=== PATIENT | male | born 1955 | race African-American/Black ===

== ENCOUNTER 2019-06-19 06:55 | Inpatient (IN) | payer BC ==
[2019-06-19] VITALS (23 sets, daily range): BP systolic 86–133; BP diastolic 44–102; PULSE 116–150; RESP 16–31; Ht 170.2 cm; Wt 79.0 kg
[~2019-06-19] VITALS: Ht 170.2 cm; Wt 79.0 kg
[~2019-06-19 06:55] MED LIST: ACET325T33 PO; AMLO-147 PO; BUSP15TA3 PO; CARAS PO; DOCU-103 PO; INSU100C SQ; INSU100I33 SC; LABE100T7 PO; LACT1CAP28 PO; LISI-313 PO; LISI10TA2 PO; LORA1TAB PO; METO-335 PO; PANT40TA4 PO; RIVA15TA PO; THIA100T56 PO
[2019-06-19] MEDS ORDERED: SOD CHLORIDE 0.9% 2,450 ML IV ONE (07:00)
[2019-06-19] MEDS ORDERED: SOD CHLORIDE 0.9% 0 ML IV ONE (07:20)
[2019-06-19] MEDS ORDERED: PANTOPRAZOLE IV 80 MG in SOD CHLORIDE 0.9% 100 ML IVPB STA (07:25)
[2019-06-19] MEDS ORDERED: CEFEPIME 2GM/50 ML (PMX) 50 ML IVPB STA (07:25)
[2019-06-19] MEDS ORDERED: VANCOMYCIN 1 GM (PMX) 250 ML IVPB ONE (07:30)
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
[2019-06-19] MEDS ORDERED: INSULIN LISPRO 100 UNIT/ML VIAL SC ONE (08:30)
[2019-06-19] MEDS ORDERED: ACETAMINOPHEN 650 MG SUPP PR ONE (08:30)
[2019-06-19] MEDS ORDERED: ACCU-CHEK XX ONE (09:00)
--- NOTE | 2019-06-19 12:04 | EN ---
Date/Time of Note Date/Time of Note DATE: 06/19/19 TIME: 12:03 Event Note Medicine Medicine Event Note Patient has severe anemia, hemoglobin 3.7. Patient is nonverbal unable to provide consent at this time. There are no family members or other documentation available to obtain consent. It is a medical necessity at this time to get the blood products ordered including PRBC transfusion and FFP, and therefore we will go ahead and order this and proceed with transfusions. SHONNA RING Jun 19, 2019 12:03
[2019-06-19] MEDS ORDERED: ONDANSETRON 4 MG INJ IV PRN (12:30)
[2019-06-19] MEDS ORDERED: DEXTROSE 50% 50 ML SYRINGE IV PRN ×2 (12:30)
[2019-06-19] MEDS ORDERED: NITROGLYCERIN (SL) 0.4 MG TAB SL PRN (12:30)
[2019-06-19] MEDS ORDERED: LIDOCAINE 1% (MPF) 5 ML VIAL SC ONE (12:30)
[2019-06-19] MEDS ORDERED: VANCOMYCIN IV PER PHARMACY XX SCH (12:30)
[2019-06-19] MEDS ORDERED: NACL 0.9% 3 ML SYG IV SCH (12:30)
[2019-06-19] MEDS ORDERED: ACETAMINOPHEN 325 MG TAB PO PRN (12:30)
[2019-06-19] MEDS ORDERED: ALBUTEROL/IPRATROPIUM (NEB) 3 ML AMP HHN PRN (12:30)
[2019-06-19] MEDS ORDERED: hydrALAzine 20 MG INJ IV PRN (12:30)
[2019-06-19] MEDS ORDERED: MAGNESIUM HYDROXIDE 30ML CUP PO PRN (12:30)
[2019-06-19] MEDS ORDERED: morphine 2 MG INJ IV PRN (12:30)
[2019-06-19] MEDS ORDERED: HYDROCODONE/APAP (5/325) TAB PO PRN (12:30)
[2019-06-19] MEDS ORDERED: SUCRALFATE (100 MG/ML) 10ML CUP PO SCH (12:30)
[2019-06-19] MEDS: SOD CHLORIDE 0.9% 1,000 ML IV SCH ×2 (13:25→22:44)
[2019-06-19] MEDS: ACCU-CHEK XX SCH ×12 (13:30→23:33)
[2019-06-19] MEDS: INSULIN HUMAN REGULAR 100 UNIT in SOD CHLORIDE 0.9% 99 ML IV SCH ×2 (13:31→19:31)
--- NOTE | 2019-06-19 13:55 | CONS ---
Assessment/Plan Assessment/Plan Hospital Course (Demo Recall) Summary Assessment and Plan: Assessment: Severe anemia with reported melena Coagulopathy Lactacidosis Leukocytosis Dehydration Hyperglycemia- with likely underlying DM Left sided weakness -Hx of tracheostomy and PEG- based on exam CT brain - Densely calcified right M1 middle cerebral artery which may be chronically thrombosed Plan: Transfuse Packed RBCs- FFP today Pt is not able to consent for himself nor is there known family/conservator to consent- therefore this is deemed as a medical necessity to proceed with EGD given melena and severe anemia, once stabilized. We will plan for EGD likely tomorrow Agree with PPI gtt SW consult pending Monitor H/H, transfuse for Hgb less than 7.5- recheck INR in am Patient seen in collaboration with Dr. Cooper CC: JAZZ COOPER MD ; Consultation Date/Type/Reason Admit Date/Time Jun 19, 2019 at 09:22 Date of Consultation: Jun 19, 2019 Type of Consult GI Reason for Consultation Severe anemia Date/Time of Note DATE: 06/19/19 TIME: 13:51 Hx of Present Illness This is a 64-year-old male with altered mental status therefore HPI is limited information obtained from medical history with what appears to be a history of left-sided weakness, previous tracheostomy and PEG placement, hyperglycemia with likely underlying diabetes mellitus who presented to the hospital from [facility] for increased altered mental status. With work-up in the ED patient found to have profound normocytic anemia with a hemoglobin of 3.7, leukocytosis with a WBC of 17.9, coagulopathy INR 2.03, elevated glucose 521, elevated lactic acid 5.0, potassium 5.2. Additionally imaging was obtained CXR shows no evidence of active cardiopulmonary disease. CT of the brain shows no acute intracranial pathology densely calcified right OR middle cerebral artery which may be chronically thrombosed. CT abdomen pelvis without contrast reveals tiny hernia, no evidence of colitis or appendicitis. At time evaluation patient is in ICU currently receiving packed RBCs patient is able to respond to name not able to answer other questions during examination patient appeared to be in significant pain while palpating epigastric area there is also reported melena with arrival. Subjective hx not possible: pt critical Past Medical History Home Meds Reported Medications Sucralfate* (Carafate*) 1 Gm/10 Ml Susp, 1 GM PO NEEDED, EA 06/19/19 Docusate Sodium (Docusil) 100 Mg Capsule, 100 MG PO BID, #60 CAP 06/19/19 Lisinopril* (Lisinopril*) 10 Mg Tablet, 10 MG PO BID, #30 TAB 06/19/19 Rivaroxaban* (Xarelto*) 15 Mg Tablet, 15 MG PO DAILY, TAB 06/19/19 Insulin Lispro (Humalog) 100 Unit/1 Ml Cartridge, SQ, EA 06/19/19 Lorazepam* (Lorazepam*) 1 Mg Tablet, 1 MG PO TID PRN for ANXIETY, #30 TAB 06/19/19 Amlodipine Besylate* (Amlodipine Besylate*) 10 Mg Tablet, 10 MG PO DAILY, #30 TAB 06/19/19 Insulin Glargine,Hum.rec.anlog (Basaglar Kwikpen U-100) 100 Unit/1 Ml Insuln.pen, SC, EA 06/19/19 Buspirone Hcl* (Buspirone Hcl*) 15 Mg Tablet, 15 MG PO BID, TAB 06/19/19 Labetalol Hcl* (Labetalol Hcl*) 100 Mg Tablet, 100 MG PO TID, TAB 06/19/19 Medications Current Medications IV Flush (NS 3 ml) 3 ml PER PROTOCOL IV ; Start 06/19/19 at 12:30 Ondansetron HCl (Zofran Inj) 4 mg Q6H PRN IV NAUSEA/VOMITING; Start 06/19/19 at 12:30 Acetaminophen (Tylenol Tab) 650 mg Q6H PRN PO .PAIN 1-3 OR TEMP; Start 06/19/19 at 12:30 Acetaminophen/ Hydrocodone Bitart (Rives (5/325)) 1 tab Q6H PRN PO .MOD PAIN 4- 6; Start 06/19/19 at 12:30 Morphine Sulfate (morphine) 2 mg Q4H PRN IV .SEVERE PAIN 7-10; Start 06/19/19 at 12:30 Docusate Sodium (Colace) 100 mg Q12H PRN PO .CONSTIPATION; Start 06/19/19 at 12:30 Magnesium Hydroxide (Milk Of Mag) 30 ml DAILY PRN PO .CONSTIPATION; Start 06/19/19 at 12:30 Lorazepam (Ativan) 0.5 mg Q6H PRN IV ANXIETY; Start 06/19/19 at 12:30 Sodium Chloride 1,000 ml @ 100 mls/hr Q10H IV Last administered on 06/19/19at 13:25; Admin Dose 100 MLS/HR; Start 06/19/19 at 12:01 Albuterol/ Ipratropium (Duoneb) 3 ml Q4H RESP THERAPY PRN HHN SHORTNESS OF BREATH; Start 06/19/19 at 12:30 Vancomycin HCl (Vanco Iv Per Pharmacy) VANCOMYCIN PER PHARMACY NOTE XX ; Start 06/19/19 at 12:30; Status UNV Hydralazine HCl (Apresoline) 10 mg Q6H PRN IV ELEVATED BLOOD PRESSURE; Start 06/19/19 at 12:30 Nitroglycerin (Nitroglycerin (Sl Tab) 0.4 Mg) 1 tab Q5M PRN SL ANGINA; Start 06/19/19 at 12:30 Cefepime HCl 50 ml @ 100 mls/hr Q8 IVPB ; Start 06/19/19 at 14:00 Diagnostic Test (Pha) (Accu-Chek) 1 ea Q1H XX Last administered on 06/19/19at 13:49; Admin Dose 1 EA; Start 06/19/19 at 12:30 Insulin Human Regular 100 unit/ Sodium Chloride 100 ml @ 0.2 mls/hr PER PROTOCOL IV Last administered on 06/19/19at 13:31; Admin Dose 6 MLS/HR; Start 06/19/19 at 13:30 Miscellaneous Information (* Miscellaneous Pharmacy Order) Treatment of Hypoglycemia: 1.BG 51... Per protocol XX ; Start 06/19/19 at 12:30 Dextrose (D50w Syringe) 25 ml Q15M PRN IV .DECREASED GLUCOSE; Start 06/19/19 at 12:30 Dextrose (D50w Syringe) 50 ml Q15M PRN IV .DECREASED GLUCOSE; Start 06/19/19 at 12:30 Sucralfate (Carafate Susp) 1 gm Q12 PO ; Start 06/19/19 at 12:30 Pantoprazole 80 mg/Sodium Chloride 100 ml @ 10 mls/hr Q10H IV ; Start 06/19/19 at 12:30 Allergies: Coded Allergies: Unknown: Unable to obtain (Unverified , 06/19/19) aloc Social History Smoking Status: Unknown if ever smoked Exam/Review of Systems Exam Vitals Vital Signs Date Temp Pulse Resp B/P (MAP) Pulse Ox O2 O2 Flow FiO2 Time Delivery Rate 06/19/19 136 12:00 06/19/19 Nasal 2.0 12:00 Cannula 06/19/19 97.0 16 109/53 100 10:24 (71) Exam PHYSICAL EXAMINATION: GENERAL: Pale, lethargic, confused- not able to make needs known SKIN: No lesions HEAD: Normocephalic, atraumatic, no tenderness. EYES: Pupils equal reactive to light and accommodation, no discharge. EARS/NOSE AND THROAT: Ears normal, nose normal, oropharynx normal, oral membranes well hydrated without lesions. NECK: Supple, no masses. CHEST: Inspection within normal limits. CARDIOVASCULAR: Heart: Regular rate and rhythm RESPIRATORY: Lungs clear to auscultation GASTROINTESTINAL AND LIVER: Abdomen: Soft, upper abdominal pain with palpation, non-distended, no hernias, no masses, no guarding, no rebound tenderness, normoactive bowel sounds. Rectal: Deferred. EXTREMITIES: No cyanosis, clubbing or edema. Results Result Diagram: 06/19/19 0656 06/19/19 0656 Results 24hrs Laboratory Tests Test 06/19/19 06:56 06/19/19 07:38 06/19/19 08:50 06/19/19 09:24 White Blood Count 17.9 H Red Blood Count 1.27 L Hemoglobin 3.7 *L Hematocrit 12.5 L Mean Corpuscular 98.4 Volume Mean Corpuscular 29.1 Hemoglobin Mean Corpuscular 29.6 L Hemoglobin Concent Red Cell 16.6 H Distribution Width Platelet Count 177 Mean Platelet 12.1 H Volume Immature 4.300 H Granulocytes % Neutrophils % 73.3 Lymphocytes % 12.9 L Monocytes % 9.3 Eosinophils % 0.1 Basophils % 0.1 Nucleated Red 4.4 H Blood Cells % Immature 0.770 H Granulocytes # Neutrophils # 13.1 H Lymphocytes # 2.3 Monocytes # 1.7 H Eosinophils # 0.0 Basophils # 0.0 Nucleated Red 0.8 H Blood Cells # Prothrombin Time 23.0 H Prothrombin Time 1.8 Ratio INR International 2.03 Normalized Ratio Activated 21.[address] Time Blood Gas Specimen Blood arterial Source Arterial Blood 06/19/2019 7:12:21 Date Drawn AM Arterial Blood pH 7.468 H (Temp corrected) Arterial Blood 28.5 L pCO2 (Temp correct) Arterial Blood pO2 150.3 H (Temp corrected) Arterial Blood 20.2 L HCO3 Arterial Blood -3.6 L Base Excess Arterial Blood 98.7 H Oxygen Saturation Vasu Test N/A Arterial Blood Gas LB Puncture Site Arterial 0.5 Blood Carboxyhemog lobin Arterial Blood 0.7 Methemoglobin Blood Gas A-a O2 30.1 H Differential Oxyhemoglobin 97.5 Percent Blood Gas 37.0 Temperature Blood Gas Modality NASAL CANNULA FiO2 30.0 Blood Gas Notified Joe Whom Blood Gas Notified 06/19/2019 7:17:06 Time AM Sodium Level 137 Potassium Level 5.2 H Chloride Level 106 Carbon Dioxide 19 L Level Anion Gap 12 Blood Urea 72 H Nitrogen Creatinine 1.19 Est Glomerular > 60 Filtrat Rate mL/min Glucose Level 521 *H Hemoglobin A1c Lactic Acid Level 5.0 *H 5.3 *H Calcium Level 8.7 Total Bilirubin 0.3 Direct Bilirubin 0.00 Indirect Bilirubin 0.3 Aspartate Amino 14 L Transf (AST/SGOT) Alanine 18 Aminotransferase ( ALT/SGPT) Alkaline 57 Phosphatase Troponin I < 0.012 Total Protein 4.8 L Albumin 2.8 L Globulin 2.00 Albumin/Globulin 1.40 Ratio Salicylates Level < 1.0 L Acetaminophen < 10.0 L Level Ethyl Alcohol < 10.0 H Level POC Venous Lactate 4.4 *H Bedside Glucose 537 *H Test 06/19/19 10:00 06/19/19 11:07 06/19/19 11:21 06/19/19 13:26 Urine Color STRAW Urine Clarity CLEAR Urine pH 5.0 Urine Specific 1.014 [place] Urine Ketones TRACE A Urine Nitrite NEGATIVE Urine Bilirubin NEGATIVE Urine Urobilinogen NEGATIVE Urine Leukocyte NEGATIVE Esterase Urine Hemoglobin NEGATIVE Urine Glucose 3+ H Urine Total NEGATIVE Protein Urine Opiates Negative Screen Urine Barbiturates Negative Urine Amphetamines Negative Screen Urine Negative Benzodiazepines Screen Urine Cocaine Negative Screen Urine Cannabinoids Negative Lactic Acid Level 6.0 *H Bedside Glucose 504 *H 487 *H Medications Medication Current Medications IV Flush (NS 3 ml) 3 ml PER PROTOCOL IV ; Start 06/19/19 at 12:30 Ondansetron HCl (Zofran Inj) 4 mg Q6H PRN IV NAUSEA/VOMITING; Start 06/19/19 at 12:30 Acetaminophen (Tylenol Tab) 650 mg Q6H PRN PO .PAIN 1-3 OR TEMP; Start 06/19/19 at 12:30 Acetaminophen/ Hydrocodone Bitart (Rives (5/325)) 1 tab Q6H PRN PO .MOD PAIN 4- 6; Start 06/19/19 at 12:30 Morphine Sulfate (morphine) 2 mg Q4H PRN IV .SEVERE PAIN 7-10; Start 06/19/19 at 12:30 Docusate Sodium (Colace) 100 mg Q12H PRN PO .CONSTIPATION; Start 06/19/19 at 12:30 Magnesium Hydroxide (Milk Of Mag) 30 ml DAILY PRN PO .CONSTIPATION; Start 06/19/19 at 12:30 Lorazepam (Ativan) 0.5 mg Q6H PRN IV ANXIETY; Start 06/19/19 at 12:30 Sodium Chloride 1,000 ml @ 100 mls/hr Q10H IV Last administered on 06/19/19at 13:25; Admin Dose 100 MLS/HR; Start 06/19/19 at 12:01 Albuterol/ Ipratropium (Duoneb) 3 ml Q4H RESP THERAPY PRN HHN SHORTNESS OF BREATH; Start 06/19/19 at 12:30 Vancomycin HCl (Vanco Iv Per Pharmacy) VANCOMYCIN PER PHARMACY NOTE XX ; Start 06/19/19 at 12:30; Status UNV Hydralazine HCl (Apresoline) 10 mg Q6H PRN IV ELEVATED BLOOD PRESSURE; Start 06/19/19 at 12:30 Nitroglycerin (Nitroglycerin (Sl Tab) 0.4 Mg) 1 tab Q5M PRN SL ANGINA; Start 06/19/19 at 12:30 Cefepime HCl 50 ml @ 100 mls/hr Q8 IVPB ; Start 06/19/19 at 14:00 Diagnostic Test (Pha) (Accu-Chek) 1 ea Q1H XX Last administered on 06/19/19at 13:49; Admin Dose 1 EA; Start 06/19/19 at 12:30 Insulin Human Regular 100 unit/ Sodium Chloride 100 ml @ 0.2 mls/hr PER PROTOCOL IV Last administered on 06/19/19at 13:31; Admin Dose 6 MLS/HR; Start 06/19/19 at 13:30 Miscellaneous Information (* Miscellaneous Pharmacy Order) Treatment of Hypoglycemia: 1.BG 51... Per protocol XX ; Start 06/19/19 at 12:30 Dextrose (D50w Syringe) 25 ml Q15M PRN IV .DECREASED GLUCOSE; Start 06/19/19 at 12:30 Dextrose (D50w Syringe) 50 ml Q15M PRN IV .DECREASED GLUCOSE; Start 06/19/19 at 12:30 Sucralfate (Carafate Susp) 1 gm Q12 PO ; Start 06/19/19 at 12:30 Pantoprazole 80 mg/Sodium Chloride 100 ml @ 10 mls/hr Q10H IV ; Start 06/19/19 at 12:30 DAIANA HERNANDEZ Jun 19, 2019 13:55
[2019-06-19] MEDS ORDERED: VANCOMYCIN 500 MG (PMX) 100 ML IVPB SCH (15:00)
[2019-06-19] MEDS ORDERED: SUCRALFATE (100 MG/ML) 10ML CUP PO PRN (15:00)
--- NOTE | 2019-06-19 15:26 | HP ---
DATE OF ADMISSION: 06/19/2019 CHIEF COMPLAINT: This is a 64-year-old, altered level of consciousness, elevated sugars. HISTORY OF PRESENT ILLNESS: A 64-year-old gentleman with past medical history based on records of left-sided weakness, tracheostomy placement, PEG placement, likely diabetes with hyperglycemia, who was brought in from [facility] for altered mental status and altered level of consciousness. Most of the information is obtained from the ER documentation as the patient is unable to provide full HPI at this time. When the patient arrived in the ER was told that the patient had been having altered mental status at the outside facility at least for 1 hour. When he came in, he was found with elevated blood sugars in the 500 range and his blood pressure was low, systolic blood pressure in the 80s. He was also found in the ER with temperature 100.2 and elevated white blood cell count of 17.9. His INR was also found to be high at 2.03 and his lactic acid was elevated in the 5 to 6 range. The patient more importantly was also found with hemoglobin 3.7 and was ordered for 4 units of PRBC in the ER, which the patient is presently getting. He also received broad spectrum antibiotics and IV fluids and Protonix IV. There was also noticed in the ER, some dark stools. Again, full review of systems cannot be obtained as the patient is unable to provide this at this time. The patient also had a CT of the brain that did not show any acute abnormalities. patient also had CT abdomen and pelvis without contrast that showed tiny hernias, but no evidence of any colitis or appendicitis. Also, chest x-ray was performed that showed no evidence of any active cardiopulmonary disease. PAST MEDICAL HISTORY: As stated above. ALLERGIES: Unknown. MEDICATIONS AT HOME (FACILITY): Based on records, he is on: 1. Xarelto 50 mg daily. 2. Amlodipine 10 mg daily. 3. Labetalol 100 mg t.i.d. 4. Lisinopril 10 mg b.i.d. 5. Buspirone 50 mg b.i.d. 6. Lorazepam 1 mg p.o. t.i.d. p.r.n. 7. Colace 100 mg b.i.d. 8. Carafate 1 gram p.o. as needed. 9. Besaglar insulin, unknown dose. 10. Humalog insulin, unknown dose. SOCIAL HISTORY: Unknown. PAST SURGICAL HISTORY: Again, the patient has history of trach and PEG. Rest of the information unable to obtain. FAMILY HISTORY: Unknown. PHYSICAL EXAMINATION: VITAL SIGNS: T-max 100.2, pulse 135-142, blood pressure systolic 80 to 139 systolic over 74 to 112, diastolic, satting at 100% on 2 liters nasal cannula. GENERAL: The patient is lying in bed, answers simple yes and no questions, appears lethargic, however. HEENT: Pupils equal, round and reactive to light. Extraocular muscles intact. NECK: Supple, no thyromegaly. LUNGS: Clear to auscultation bilaterally. CARDIOVASCULAR: Tachycardic heart rate. No rubs or gallops. ABDOMEN: Soft, somewhat distended, but otherwise nontender. Normal bowel sounds. No rebound or guarding. MUSCULOSKELETAL: No lower extremity edema bilaterally. NEUROLOGIC: appears to have some left-sided weakness symptoms. LABORATORIES: WBC 17.9, hemoglobin 3.7, hematocrit 12.5, platelets of 177. Sodium 137, potassium 5.2, chloride 106, CO2 19, BUN of 72, creatinine 1.19, glucose of 521. Lactic acid 5.0. LFTs are normal. Urine drug screen is negative. Blood alcohol level is normal. Salicylate level is normal and blood acetaminophen level is normal. UA shows trace ketones, 3+ glucose, but negative nitrites, negative leukocyte esterase. Coags show an INR 2.03. We mentioned the imaging studies. ASSESSMENT AND PLAN: 64-year-old male with past medical history of left-sided weakness tracheostomy placement, PEG placement, likely diabetes with hyperglycemia who presents with severe anemia, altered mental status, hyperglycemia, lactic acidosis. 1. Severe anemia- Again, unclear source. Hgb = 3.7 on admission. The patient did have some dark stools in the ER. No signs of any upper GI bleeding. - continue PRBC transfusion has been ordered for a total of 4 units of PRBC., and we will follow up the post-transfusion CBC. - Follow up TSH, A1c, lipid panel. - Continue IV fluids, follow up stool occult test per discussion with GI team. Most likely, the patient will go for EGD, colonoscopy in the next 24 hours. - Get PT and speech therapy evaluations as well. - Continue Protonix drip. - It is a medical necessity as well to have the patient have a PICC placed as he is unable to provide consent at this time and there are no family members available to provide consent. 2. Altered mental status likely secondary to #1. - Continue to monitor for now. Head CT results noted. No acute findings. 3. Lactic acidosis with leukocytosis, unclear source. UA did not show any signs of any UTI. Chest x-ray did not show any potential source of infection. CT abdomen and pelvis did not show any further source of infection. - for now, continue to trend his lactic acid, give him aggressive IV fluid hydration - Continue broad-spectrum antibiotics for now. We will follow up final culture results. - Again, trend lactic acid. 4. Hyperglycemia. Again, sugars have been in the 500 range on admission, although the anion gap is normal. Bicarbonate is only mildly decreased. - Continue aggressive IV fluid hydration and IV insulin as well. - Follow up A1c. 5. Left-sided weakness. Again, unclear source of this patient may have had a history of an old stroke. He does have a history of tracheostomy and PEG. - Continue to monitor for now. 5. Gastrointestinal prophylaxis. PPI. 6. DVT prophylaxis. Avoid all anticoagulants- SCDs for now. Dictated By: SHONNA MARSHALL/ANGELICA Conf#: [id number] DID#: [id number] CC: YONATHAN PAULINO MD;*[facility]* MTDD
[2019-06-19] MEDS: CEFEPIME 2GM/50 ML (PMX) 50 ML IVPB SCH ×2 (15:27→22:44)
[2019-06-19] MEDS: PANTOPRAZOLE IV 80 MG in SOD CHLORIDE 0.9% 100 ML IV SCH ×2 (17:22→22:44)
--- NOTE | 2019-06-19 20:54 | RADRPT ---
Echocardiogram Report Patient Name: STANISLAV JUAREZPatient ID: [id number] : 1955 (64y 2m)Study Date: 06/19/2019 1:51:52 PM Gender: MAccession #: [id number] Tech: BrettPankaj Brown RDCS Location: 108 Ref.Physician: SHONNA RING Height(Cm): BSA: Weight(Kg): Quality: AdequateOrder Physician: SHONNA RING Account #: Procedures: Echocardiographic Report: Transthoracic echocardiogram with complete 2D, M-Mode, and doppler examination. Indications: AMS. Measurements: 2D/M Mode Doppler Measurement Value Normal Range Measurement Value Normal Range LVIDd 2D 4.1 [ 4.2 - 5.8 ] cm AV Peak Dheeraj 1.1 [ 100.0 - 170.0 ] cm/sec LVIDs 2D 2.5 [ 2.5 - 4.0 ] cm AV Peak PG 5.0 [ 2.0 - 9.0 ] mmHg LVPWd 2D 1.0 [ 0.6 - 1.0 ] cm LVOT Peak Dheeraj 0.8 [ 70.0 - 110.0 ] cm/sec IVSd 2D 1.1 [ 0.6 - 1.0 ] cm LVOT Peak PG 2.0 [ 2.0 - 6.0 ] mmHg AoR Diam 2D 2.7 [ 2.6 - 3.4 ] cm TR Peak Dheeraj 2.8 [ 100.0 - 280.0 ] cm/sec EDV 2D 72.9 [ 62.0 - 150.0 ] ml TR Peak PG 31.0 mmHg ESV 2D 22.1 [ 21.0 - 61.0 ] ml RVSP 34.0 [ 10.0 - 36.0 ] mmHg EF 2D 69.7 [ 52.0 - 72.0 ] percent RA Pressure 3.0 mmHg LA Dimen 2D 1.9 [ 3.0 - 4.0 ] cm Findings: Left Ventricle: Normal left ventricular systolic function. Normal left ventricular cavity size. Mild concentric left ventricular hypertrophy. Ejection fraction is visually estimated at 55-60 %. Abnormal Diastolic Function. Right Ventricle: Normal right ventricular size. Normal right ventricular systolic function. Left Atrium: The left atrium is normal in size. Right Atrium: The right atrium is normal in size. Mitral Valve: Normal appearance and function of the mitral valve with trace physiologic regurgitation. Aortic Valve: No significant aortic stenosis or insufficiency. Aortic cusps appear moderately calcified. Tricuspid Valve: Normal appearance of the tricuspid valve. The estimated Peak RVSP is 34 mmHg. There is trace tricuspid regurgitation. Pulmonic Valve: Pulmonic valve not well visualized. Pericardium: Normal pericardium with no significant pericardial effusion. Aorta: Normal aortic root. IVC: Normal size and normal respiratory collapse consistent with normal right atrial pressure. Conclusions: Normal left ventricular systolic function. Normal left ventricular cavity size. Mild concentric left ventricular hypertrophy. Ejection fraction is visually estimated at 55-60 %. Abnormal Diastolic Function. n. Normal right ventricular size. Normal right ventricular systolic function. No significant valvular stenosis or regurgitation seen. Normal pericardium with no significant pericardial effusion. Electronically Signed By: Fred Chavez 2019-06-19 17:12:47 PDT
[2019-06-20] VITALS (37 sets, daily range): BP systolic 101–177; BP diastolic 65–119; PULSE 101–137; RESP 15–32
[2019-06-20] MEDS: ACCU-CHEK XX SCH ×10 (00:30→09:52)
[2019-06-20] MEDS: VANCOMYCIN 1 GM 250 ML IVPB SCH ×2 (01:38→14:09)
[2019-06-20] MEDS: CEFEPIME 2GM/50 ML (PMX) 50 ML IVPB SCH ×3 (05:24→21:54)
[2019-06-20] MEDS: SOD CHLORIDE 0.9% 1,000 ML IV SCH (08:14)
[2019-06-20] MEDS: PANTOPRAZOLE IV 80 MG in SOD CHLORIDE 0.9% 100 ML IV SCH (08:14)
--- NOTE | 2019-06-20 09:54 | PN ---
Date/Time of Note Date/Time of Note DATE: 06/20/19 TIME: 09:49 Assessment/Plan VTE Prophylaxis Risk score (from Ns)>0 risk: 2 SCD applied (from Ns): Yes Pharmacological prophylaxis: NA/contraindicated Pharm contraindication: bleeding, blood coag disorder Lines/Catheters IV C[facility]ter Type (from [facility] PICC Line Central line still needed: Yes Urinary Cath still in place: Yes Reason Cath still needed: urinary retention Assessment/Plan Hospital Course S: Patient more alert today, still on insulin drip but sugars much improved. Still on Protonix drip. Seen by GI team yesterday still waiting for official speech therapy eval now. Received 4 units PRBC transfusion yesterday and 1 unit FFP yesterday. Hemoglobin improved. No fevers overnight. Still on broad- spectrum antibiotics O: VS- see below PHYSICAL EXAMINATION: GENERAL: Lying in bed, slightly more alert, less lethargic, answering simple questions HEENT: Pupils equal, round and reactive to light. Extraocular muscles intact. NECK: Supple, no thyromegaly. LUNGS: Clear to auscultation bilaterally. CARDIOVASCULAR: Tachycardic heart rate. No rubs or gallops. ABDOMEN: Soft, somewhat distended, but otherwise nontender. Normal bowel sounds. No rebound or guarding. MUSCULOSKELETAL: No lower extremity edema bilaterally. NEUROLOGIC: appears to have some left-sided weakness symptoms. ASSESSMENT AND PLAN: 64-year-old male with past medical history of left-sided weakness tracheostomy placement, PEG placement, likely diabetes with hyperglycemia who presents with severe anemia, altered mental status, hyperglycemia, lactic acidosis. 1. Severe anemia -hemoglobin now improved after 4 units PRBC given yesterday, this morning in the 8.9 range. On admission the patient did have some dark stools in the ER. No signs of any upper GI bleeding. - continue to monitor CBC. - Continue IV fluids, follow up stool occult test per discussion with GI team. Most likely, the patient will go for EGD, colonoscopy today or tomorrow -Follow-up full recognitions from PT and speech therapy evaluations as well, until then keep n.p.o. for now. -For now continue continue Protonix drip. - It is a medical necessity as well to have the patient have a PICC placed as he is unable to provide consent at this time and there are no family members available to provide consent. 2. Altered mental status likely secondary to #1. Likely secondary to sepsis and anemia, patient more alert today. - Continue to monitor for now. Head CT results noted. No acute findings. 3. Lactic acidosis with leukocytosis- unclear source. UA did not show any signs of any UTI. Chest x-ray did not show any potential source of infection. CT abdomen and pelvis did not show any further source of infection. Lactic acid from today still pending.. - for now, continue to trend his lactic acid, IV fluid hydration - Continue broad-spectrum antibiotics for now. We will follow up final culture results. 4. Hyperglycemia-sugars on admission were in the 500 range although the anion gap is normal. Bicarbonate is only mildly decreased. Sugars now improved after being on insulin drip all day yesterday and throughout the night. A1c was a send out, likely very elevated - Continue aggressive IV fluid hydration, given the improvement in the sugar s will switch to subcu insulin and Lantus - Follow up final results of A1c. 5. Left-sided weakness. Again, unclear source of this patient may have had a history of an old stroke. He does have a history of tracheostomy and PEG. On his home medicine list he was taken Xarelto, presumably for prior stroke question mitch - Continue to monitor for now. - Obviously holding all anticoagulants given the severe anemia patient presented with. 5. Gastrointestinal prophylaxis. PPI. 6. DVT prophylaxis. Avoid all anticoagulants- SCDs for now. Critical care time spent on patient care today equals 50 minutes. Result Diagram: 06/20/19 0440 06/20/19439 Results 24hrs Laboratory Tests Test 06/19/19 10:00 06/19/19 11:07 06/19/19 11:21 06/19/19 13:26 Urine Color STRAW Urine Clarity CLEAR Urine pH 5.0 Urine Specific 1.014 [place] Urine Ketones TRACE A Urine Nitrite NEGATIVE Urine Bilirubin NEGATIVE Urine Urobilinogen NEGATIVE Urine Leukocyte NEGATIVE Esterase Urine Hemoglobin NEGATIVE Urine Glucose 3+ H Urine Total Protein NEGATIVE Urine Opiates Negative Screen Urine Barbiturates Negative Urine Amphetamines Negative Screen Urine Negative Benzodiazepines Screen Urine Cocaine Negative Screen Urine Cannabinoids Negative Lactic Acid Level 6.0 *H Bedside Glucose 504 *H 487 *H Test 06/19/19 13:37 06/19/19 14:29 06/19/19 15:27 06/19/19 16:56 Lactic Acid Level 4.9 *H Free Thyroxine 1.15 Bedside Glucose 459 *H 432 *H 431 *H Test 06/19/19 17:40 06/19/19 18:36 06/19/19 18:41 06/19/19 19:32 Bedside Glucose 381 H 317 H 190 Hemoglobin 9.4 #L Hematocrit 29.0 #L Test 06/19/19 20:23 06/19/19 21:44 06/19/19 22:36 06/19/19 23:35 Bedside Glucose 149 98 120 132 Test 06/20/19 00:30 06/20/19 01:33 06/20/19 02:38 06/20/19 03:31 Bedside Glucose 139 138 129 125 Test 06/20/19 04:40 06/20/19 04:41 06/20/19 04:54 06/20/19 05:26 White Blood Count 18.2 H Red Blood Count 3.14 #L Hemoglobin 8.9 L Hematocrit 27.1 L Mean Corpuscular 86.3 Volume Mean Corpuscular 28.3 L Hemoglobin Mean Corpuscular 32.8 Hemoglobin Concent Red Cell 16.6 H Distribution Width Platelet Count 137 #L Mean Platelet 11.4 H Volume Immature 5.600 H Granulocytes % Neutrophils % 72.5 Lymphocytes % 11.6 L Monocytes % 9.8 Eosinophils % 0.1 Basophils % 0.4 Nucleated Red Blood 5.9 H Cells % Immature 1.020 H Granulocytes # Neutrophils # 13.2 H Lymphocytes # 2.1 Monocytes # 1.8 H Eosinophils # 0.0 Basophils # 0.1 Nucleated Red Blood 1.1 H Cells # Prothrombin Time 15.3 #H Prothrombin Time 1.2 Ratio INR International 1.20 Normalized Ratio Sodium Level 149 H Potassium Level 3.4 L Chloride Level 118 H Carbon Dioxide 23 Level Anion Gap 8 Blood Urea Nitrogen 34 #H Creatinine 0.85 Est Glomerular > 60 Filtrat Rate mL/min Glucose Level 118 # Hemoglobin A1c 5.8 Calcium Level 8.6 Phosphorus Level 2.1 L Magnesium Level 2.1 Triglycerides Level 124 Cholesterol Level 83 L LDL Cholesterol, 40 Calculated HDL Cholesterol 18 L Cholesterol/HDL 4.6 Ratio Thyroid Stimulating 2.550 Hormone (TSH) Bedside Glucose 125 123 Lab Scanned Report BLOOD TRANSFUSION Test 06/20/19 06:10 06/20/19 06:12 06/20/19 08:13 Bedside Glucose 115 121 118 Exam/Review of Systems Exam Vitals Vital Signs Date Temp Pulse Resp B/P (MAP) Pulse Ox O2 O2 Flow FiO2 Time Delivery Rate 06/20/19 113 08:00 06/20/19 18 145/95 97 Room Air 07:00 (112) 06/20/19 98.6 04:00 06/19/19 2.0 12:00 Intake and Output 06/19/19 06/19/19 06/20/19 1515:00 23:00 07:00 IntakeIntake Total 650 ml 1083.0 ml 1368 ml OutputOutput Total 1400 ml 1050 ml 920 ml BalanceBalance -750 ml 33.0 ml 448 ml Results Results 24hrs Laboratory Tests Test 06/19/19 10:00 06/19/19 11:07 06/19/19 11:21 06/19/19 13:26 Urine Color STRAW Urine Clarity CLEAR Urine pH 5.0 Urine Specific 1.014 [place] Urine Ketones TRACE A Urine Nitrite NEGATIVE Urine Bilirubin NEGATIVE Urine Urobilinogen NEGATIVE Urine Leukocyte NEGATIVE Esterase Urine Hemoglobin NEGATIVE Urine Glucose 3+ H Urine Total Protein NEGATIVE Urine Opiates Negative Screen Urine Barbiturates Negative Urine Amphetamines Negative Screen Urine Negative Benzodiazepines Screen Urine Cocaine Negative Screen Urine Cannabinoids Negative Lactic Acid Level 6.0 *H Bedside Glucose 504 *H 487 *H Test 06/19/19 13:37 06/19/19 14:29 06/19/19 15:27 06/19/19 16:56 Lactic Acid Level 4.9 *H Free Thyroxine 1.15 Bedside Glucose 459 *H 432 *H 431 *H Test 06/19/19 17:40 06/19/19 18:36 06/19/19 18:41 06/19/19 19:32 Bedside Glucose 381 H 317 H 190 Hemoglobin 9.4 #L Hematocrit 29.0 #L Test 06/19/19 20:23 06/19/19 21:44 06/19/19 22:36 06/19/19 23:35 Bedside Glucose 149 98 120 132 Test 06/20/19 00:30 06/20/19 01:33 06/20/19 02:38 06/20/19 03:31 Bedside Glucose 139 138 129 125 Test 06/20/19 04:40 06/20/19 04:41 06/20/19 04:54 06/20/19 05:26 White Blood Count 18.2 H Red Blood Count 3.14 #L Hemoglobin 8.9 L Hematocrit 27.1 L Mean Corpuscular 86.3 Volume Mean Corpuscular 28.3 L Hemoglobin Mean Corpuscular 32.8 Hemoglobin Concent Red Cell 16.6 H Distribution Width Platelet Count 137 #L Mean Platelet 11.4 H Volume Immature 5.600 H Granulocytes % Neutrophils % 72.5 Lymphocytes % 11.6 L Monocytes % 9.8 Eosinophils % 0.1 Basophils % 0.4 Nucleated Red Blood 5.9 H Cells % Immature 1.020 H Granulocytes # Neutrophils # 13.2 H Lymphocytes # 2.1 Monocytes # 1.8 H Eosinophils # 0.0 Basophils # 0.1 Nucleated Red Blood 1.1 H Cells # Prothrombin Time 15.3 #H Prothrombin Time 1.2 Ratio INR International 1.20 Normalized Ratio Sodium Level 149 H Potassium Level 3.4 L Chloride Level 118 H Carbon Dioxide 23 Level Anion Gap 8 Blood Urea Nitrogen 34 #H Creatinine 0.85 Est Glomerular > 60 Filtrat Rate mL/min Glucose Level 118 # Hemoglobin A1c 5.8 Calcium Level 8.6 Phosphorus Level 2.1 L Magnesium Level 2.1 Triglycerides Level 124 Cholesterol Level 83 L LDL Cholesterol, 40 Calculated HDL Cholesterol 18 L Cholesterol/HDL 4.6 Ratio Thyroid Stimulating 2.550 Hormone (TSH) Bedside Glucose 125 123 Lab Scanned Report BLOOD TRANSFUSION Test 06/20/19 06:10 06/20/19 06:12 06/20/19 08:13 Bedside Glucose 115 121 118 Medications Medication Current Medications IV Flush (NS 3 ml) 3 ml PER PROTOCOL IV ; Start 06/19/19 at 12:30 Ondansetron HCl (Zofran Inj) 4 mg Q6H PRN IV NAUSEA/VOMITING; Start 06/19/19 at 12:30 Acetaminophen (Tylenol Tab) 650 mg Q6H PRN PO .PAIN 1-3 OR TEMP; Start 06/19/19 at 12:30 Acetaminophen/ Hydrocodone Bitart ([place] (5/325)) 1 tab Q6H PRN PO .MOD PAIN 4- 6; Start 06/19/19 at 12:30 Morphine Sulfate (morphine) 2 mg Q4H PRN IV .SEVERE PAIN 7-10; Start 06/19/19 at 12:30 Docusate Sodium (Colace) 100 mg Q12H PRN PO .CONSTIPATION; Start 06/19/19 at 12:30 Magnesium Hydroxide (Milk Of Mag) 30 ml DAILY PRN PO .CONSTIPATION; Start 06/19/19 at 12:30 Lorazepam (Ativan) 0.5 mg Q6H PRN IV ANXIETY; Start 06/19/19 at 12:30 Albuterol/ Ipratropium (Duoneb) 3 ml Q4H RESP THERAPY PRN HHN SHORTNESS OF BREATH; Start 06/19/19 at 12:30 Vancomycin HCl (Vanco Iv Per Pharmacy) VANCOMYCIN PER PHARMACY NOTE XX ; Start 06/19/19 at 12:30 Hydralazine HCl (Apresoline) 10 mg Q6H PRN IV ELEVATED BLOOD PRESSURE; Start 06/19/19 at 12:30 Nitroglycerin (Nitroglycerin (Sl Tab) 0.4 Mg) 1 tab Q5M PRN SL ANGINA; Start 06/19/19 at 12:30 Cefepime HCl 50 ml @ 100 mls/hr Q8 IVPB Last administered on 06/20/19at 05:24; Admin Dose 100 MLS/HR; Start 06/19/19 at 14:00 Diagnostic Test (Pha) (Accu-Chek) 1 ea Q1H XX Last administered on 06/20/19at 08:13; Admin Dose 1 EA; Start 06/19/19 at 12:30 Insulin Human Regular 100 unit/ Sodium Chloride 100 ml @ 0.2 mls/hr PER PROTOCOL IV Last administered on 06/19/19at 19:31; Admin Dose 24 MLS/HR; Start 06/19/19 at 13:30 Miscellaneous Information (* Miscellaneous Pharmacy Order) Treatment of Hypoglycemia: 1.BG 51... Per protocol XX ; Start 06/19/19 at 12:30 Dextrose (D50w Syringe) 25 ml Q15M PRN IV .DECREASED GLUCOSE; Start 06/19/19 at 12:30 Dextrose (D50w Syringe) 50 ml Q15M PRN IV .DECREASED GLUCOSE; Start 06/19/19 at 12:30 Pantoprazole 80 mg/Sodium Chloride 100 ml @ 10 mls/hr Q10H IV Last administered on 06/20/19at 08:14; Admin Dose 10 MLS/HR; Start 06/19/19 at 12:30 Vancomycin HCl 250 ml @ 125 mls/hr Q12H IVPB Last administered on 06/20/19at 01:38; Admin Dose 125 MLS/HR; Start 06/20/19 at 02:00 Sucralfate (Carafate Susp) 1 gm Q12H PRN PO CONSTIPATION; Start 06/19/19 at 15:00 Sodium Chloride 1,000 ml @ 75 mls/hr [id number] IV ; Start 06/20/19 at 10:00; Stat us SHONNA MCCARTHY Jun 20, 2019 09:54
[2019-06-20] MEDS: SOD CHLORIDE 0.45% 1,000 ML IV SCH ×2 (10:14→23:20)
[2019-06-20] MEDS ORDERED: GLUCOSE GEL 15 GRAM TUBE PO PRN ×2 (10:30)
[2019-06-20] MEDS ORDERED: GLUCAGON 1 MG INJ IM PRN (10:30)
[2019-06-20] MEDS ORDERED: DEXTROSE 50% 50 ML SYRINGE IV PRN ×2 (10:30)
[2019-06-20] MEDS ORDERED: GLUCOSE GEL 15 GRAM TUBE BUCCAL PRN (10:30)
[2019-06-20] MEDS: INSULIN ASPART [NOVOLOG] 3 ML PEN SC SCH ×3 (12:40→20:22)
--- NOTE | 2019-06-20 15:37 | PREAC ---
Date/Time of Note Date/Time of Note DATE: 06/20/19 TIME: 15:36 Anesthesia Eval and Record Evaluation Time Pre-Procedure Interview DATE: 06/20/19 TIME: 15:36 Age 64 Sex male NPO: 8 hrs Preoperative diagnosis anemia Planned procedure egd Past Medical History Past Medical History: Includes Cardio: HTN Endo: Diabetes Pulm: Other (tracheostomy ) Neuro: CVA Heme: Anemia Surgery & Anesthesia Issues No known issue Meds Anticoagulation: No Beta Layne within 24 hr: No Reason Beta Layne not given: Pt. not on B-Layne Reported Medications Sucralfate* (Carafate*) 1 Gm/10 Ml Susp, 1 GM PO NEEDED, EA 06/19/19 Docusate Sodium (Docusil) 100 Mg Capsule, 100 MG PO BID, #60 CAP 06/19/19 Lisinopril* (Lisinopril*) 10 Mg Tablet, 10 MG PO BID, #30 TAB 06/19/19 Rivaroxaban* (Xarelto*) 15 Mg Tablet, 15 MG PO DAILY, TAB 06/19/19 Insulin Lispro (Humalog) 100 Unit/1 Ml Cartridge, SQ, EA 06/19/19 Lorazepam* (Lorazepam*) 1 Mg Tablet, 1 MG PO TID PRN for ANXIETY, #30 TAB 06/19/19 Amlodipine Besylate* (Amlodipine Besylate*) 10 Mg Tablet, 10 MG PO DAILY, #30 TAB 06/19/19 Insulin Glargine,Hum.rec.anlog (Basaglar Kwikpen U-100) 100 Unit/1 Ml Insuln.pen, SC, EA 06/19/19 Buspirone Hcl* (Buspirone Hcl*) 15 Mg Tablet, 15 MG PO BID, TAB 06/19/19 Labetalol Hcl* (Labetalol Hcl*) 100 Mg Tablet, 100 MG PO TID, TAB 06/19/19 Current Medications IV Flush (NS 3 ml) 3 ml PER PROTOCOL IV ; Start 06/19/19 at 12:30 Ondansetron HCl (Zofran Inj) 4 mg Q6H PRN IV NAUSEA/VOMITING; Start 06/19/19 at 12:30 Acetaminophen (Tylenol Tab) 650 mg Q6H PRN PO .PAIN 1-3 OR TEMP; Start 06/19/19 at 12:30 Acetaminophen/ Hydrocodone Bitart ([place] (5/325)) 1 tab Q6H PRN PO .MOD PAIN 4- 6; Start 06/19/19 at 12:30 Morphine Sulfate (morphine) 2 mg Q4H PRN IV .SEVERE PAIN 7-10; Start 06/19/19 at 12:30 Docusate Sodium (Colace) 100 mg Q12H PRN PO .CONSTIPATION; Start 06/19/19 at 12:30 Magnesium Hydroxide (Milk Of Mag) 30 ml DAILY PRN PO .CONSTIPATION; Start 06/19/19 at 12:30 Lorazepam (Ativan) 0.5 mg Q6H PRN IV ANXIETY; Start 06/19/19 at 12:30 Albuterol/ Ipratropium (Duoneb) 3 ml Q4H RESP THERAPY PRN HHN SHORTNESS OF BREATH; Start 06/19/19 at 12:30 Vancomycin HCl (Vanco Iv Per Pharmacy) VANCOMYCIN PER PHARMACY NOTE XX ; Start 06/19/19 at 12:30 Hydralazine HCl (Apresoline) 10 mg Q6H PRN IV ELEVATED BLOOD PRESSURE; Start 06/19/19 at 12:30 Nitroglycerin (Nitroglycerin (Sl Tab) 0.4 Mg) 1 tab Q5M PRN SL ANGINA; Start 06/19/19 at 12:30 Cefepime HCl 50 ml @ 100 mls/hr Q8 IVPB Last administered on 06/20/19at 13:28; Admin Dose 100 MLS/HR; Start 06/19/19 at 14:00 Pantoprazole 80 mg/Sodium Chloride 100 ml @ 10 mls/hr Q10H IV Last administered on 06/20/19at 08:14; Admin Dose 10 MLS/HR; Start 06/19/19 at 12:30 Vancomycin HCl 250 ml @ 125 mls/hr Q12H IVPB Last administered on 06/20/19at 1 4:09; Admin Dose 125 MLS/HR; Start 06/20/19 at 02:00 Sucralfate (Carafate Susp) 1 gm Q12H PRN PO CONSTIPATION; Start 06/19/19 at 15:00 Sodium Chloride 1,000 ml @ 75 mls/hr [id number] IV Last administered on 06/20/19at 10:14; Admin Dose 75 MLS/HR; Start 06/20/19 at 10:00 Diagnostic Test (Pha) (Accu-Chek) 1 ea 02 XX ; Start 06/21/19 at 02:00 Insulin Glargine (Lantus) 16 units DAILY@0800 SC ; Start 06/21/19 at 08:00 Insulin Aspart (Novolog Insulin Pen) NOVOLOG *MODERATE* ALGORI... Q4 SC Last administered on 06/20/19at 12:40; Admin Dose 4 UNIT; Start 06/20/19 at 13:00 Miscellaneous Information 1 ea NOTE XX ; Start 06/20/19 at 10:30 Glucose (Glutose) 15 gm Q15M PRN PO DECREASED GLUCOSE; Start 06/20/19 at 10:30 Glucose (Glutose) 22.5 gm Q15M PRN PO DECREASED GLUCOSE; Start 06/20/19 at 10:30 Dextrose (D50w Syringe) 25 ml Q15M PRN IV DECREASED GLUCOSE; Start 06/20/19 at 10:30 Dextrose (D50w Syringe) 50 ml Q15M PRN IV DECREASED GLUCOSE; Start 06/20/19 at 10:30 Glucagon (Glucagen) 1 mg Q15M PRN IM DECREASED GLUCOSE; Start 06/20/19 at 10:30 Glucose (Glutose) 15 gm Q15M PRN BUCCAL DECREASED GLUCOSE; Start 06/20/19 at 10:30 Miscellaneous Information (*Rx Drug Level Order Reminder*) RACHEL TR 0100 ONCE XX ; Start 06/21/19 at 01:00; Stop 06/21/19 at 01:01 Meds reviewed: Yes Allergies Coded Allergies: Unknown: Unable to obtain (Unverified , 06/19/19) aloc Allergies Reviewed: Yes Labs/Studies Labs Reviewed: Reviewed by anesthesiologist Result Diagram: 06/20/19 0440 06/20/19 0440 Laboratory Tests 06/20/19 04:40 test: N/A Pre-procedure Exam Last vitals Vital Signs Date Temp Pulse Resp B/P (MAP) Pulse Ox O2 O2 Flow FiO2 Time Delivery Rate 06/20/19 114 17 131/78 98 Room Air 15:00 (95) 06/20/19 98.3 14:51 06/19/19 2.0 12:00 Airway: Adequate mouth opening, Adequate thyromental dist Mallampati: Mallampati IV Teeth: Normal Lung: Normal Heart: Normal ASA Physical Status ASA physical status: 4 Emergency: None Pre-operative Attestations Prior to commencing anesthesia and surgery, the patient was re-evaluated, there was verification of: *The patient's identity *The results of appropriate recent lab work and preoperative vital signs *The above evaluation not changing prior to induction *Anesthetic plan, risk benefits, alternative and complications discussed with patient/family; questions answered; patient/family understands, accepts and wishes to proceed. TALI JAY DO Jun 20, 2019 15:37
[2019-06-20] MEDS ORDERED: FENTAnyl 50 MCG/ML VIAL ONE (15:38)
[2019-06-20] MEDS ORDERED: PROPOFOL 20 ML ONE (15:38)
[2019-06-20] MEDS ORDERED: LIDOCAINE 2% (SDV) 5 ML INJ ONE (15:38)
[2019-06-20] MEDS ORDERED: MIDAZOLAM 1 MG/ML 2 ML INJ ONE (15:38)
[2019-06-20] MEDS ORDERED: LIDOCAINE 4% SOLUTION 50 ML BTL ONE (15:39)
[2019-06-20] MEDS: PANTOPRAZOLE (EC) 40 MG TAB PO SCH (18:00)
--- NOTE | 2019-06-20 18:04 | PAC ---
Date/Time of Note Date/Time of Note DATE: 06/20/19 TIME: 18:04 Post-Anesthesia Notes Post-Anesthesia Note Last documented vital signs Vital Signs Date Temp Pulse Resp B/P (MAP) Pulse Ox O2 O2 Flow FiO2 Time Delivery Rate 06/20/19 104 16 134/80 96 Room Air 16:30 (98) 06/20/19 3.0 16:15 06/20/19 98.3 14:51 Activity: WNL Respiratory function: WNL Cardiovascular function: WNL Mental status: Baseline Pain reasonably controlled: Yes Hydration appropriate: Yes Nausea/Vomiting absent: Yes TALI JAY DO Jun 20, 2019 18:04
[2019-06-20] MEDS: LORAZEPAM 2 MG INJ IV PRN (20:37)
[2019-06-21] VITALS (16 sets, daily range): BP systolic 112–156; BP diastolic 58–94; PULSE 88–127; RESP 14–21
[2019-06-21] MEDS: ACCU-CHEK XX SCH (02:00)
[2019-06-21] MEDS: VANCOMYCIN 1 GM 250 ML IVPB SCH (02:00)
[2019-06-21] MEDS: LORAZEPAM 2 MG INJ IV PRN (02:34)
[2019-06-21] MEDS: INSULIN ASPART [NOVOLOG] 3 ML PEN SC SCH ×6 (02:50→21:53)
[2019-06-21] MEDS: CEFEPIME 2GM/50 ML (PMX) 50 ML IVPB SCH ×3 (06:38→21:55)
[2019-06-21] MEDS: PANTOPRAZOLE (EC) 40 MG TAB PO SCH (06:38)
[2019-06-21] MEDS: INSULIN GLARGINE [LANTus] (100 UNITS/ML) SYG SC SCH (08:06)
--- NOTE | 2019-06-21 08:49 | PN ---
Date/Time of Note Date/Time of Note DATE: 06/21/19 TIME: 08:44 Assessment/Plan VTE Prophylaxis Risk score (from [facility] [place])>0 risk: 4 SCD applied (from Ns): Yes Pharmacological prophylaxis: NA/contraindicated Pharm contraindication: blood coag disorder Lines/Catheters IV Catheter Type (from [facility]): PICC Line Central line still needed: Yes Urinary Cath still in place: Yes Reason Cath still needed: urinary retention Assessment/Plan Hospital Course S: Patient had EGD yesterday. Still n.p.o. White blood cell count improved. No acute events overnight otherwise, although requiring restraint on one extremity. O: VS- see below PHYSICAL EXAMINATION: GENERAL: Lying in bed, slightly more alert, answering simple questions HEENT: Pupils equal, round and reactive to light. Extraocular muscles intact. NECK: Supple, no thyromegaly. LUNGS: Clear to auscultation bilaterally. CARDIOVASCULAR: Tachycardic heart rate. No rubs or gallops. ABDOMEN: Soft, somewhat distended, but otherwise nontender. Normal bowel sounds. No rebound or guarding. MUSCULOSKELETAL: No lower extremity edema bilaterally. NEUROLOGIC: appears to have some left-sided weakness symptoms. ASSESSMENT AND PLAN: 64-year-old male with past medical history of left-sided weakness tracheostomy placement, PEG placement, likely diabetes with hyperglyc emia who presents with severe anemia, altered mental status, hyperglycemia, lactic acidosis. 1. Severe anemia -hemoglobin now improved after 4 units PRBC given yesterday, in the low 9 range now. On admission the patient did have some dark stools in the ER. No signs of any upper GI bleeding. - continue to monitor CBC. - Continue IV fluids, EGD showed some distal esophagitis but otherwise was normal, continue PPI twice daily per GI recommendations -Follow-up further recommendations from PT and speech therapy evaluations as well, until then keep n.p.o. for now. - It is a medical necessity as well to have the patient have a PICC placed as he is unable to provide consent at this time and there are no family members available to provide consent. 2. Altered mental status likely secondary to #1. Likely secondary to sepsis and anemia, patient more alert the last 2 days - Continue to monitor for now. Head CT results noted. No acute findings. 3. Lactic acidosis with leukocytosis-resolving now, unclear source. UA did not show any signs of any UTI. Blood culture 1 bottle shows gram-positive cocci. Chest x-ray did not show any potential source of infection. CT abdomen and pelvis did not show any further source of infection. Lactic acid from today still pending.. - for now, continue IV fluid hydration - Continue broad-spectrum antibiotics for now. We will follow up final culture results. 4. Hyperglycemia-sugars in the high normal range now, on admission were in the 500 range although the anion gap is normal. Required insulin drip the first 24 hours of his hospital stay. Bicarbonate is only mildly decreased. Latest A1c 5.8 - Continue IV fluid hydration, subcu insulin and Lantus 5. Left-sided weakness. Again, unclear source of this patient may have had a history of an old stroke. He does have a history of prior tracheostomy and PEG. On his home medicine list he was taken Xarelto, presumably for prior stroke? - Continue to monitor for now. - Obviously holding all anticoagulants given the severe anemia patient presented with. 5. Gastrointestinal prophylaxis. PPI. 6. DVT prophylaxis. Avoid all anticoagulants-SCDs for now. Critical care time spent on patient care today equals 45 minutes. Result Diagram: 06/21/19 0445 06/21/19 0445 Results 24hrs Laboratory Tests Test 06/20/19 09:49 06/20/19 10:20 06/20/19 11:33 06/20/19 12:36 Bedside Glucose 133 215 205 Lactic Acid Level 1.0 Test 06/20/19 17:32 06/20/19 20:17 06/20/19 21:35 06/21/19 00:54 Bedside Glucose 178 167 Lactic Acid Level 1.0 Vancomycin Level Trough 9.4 L Test 06/21/19 02:25 06/21/19 04:45 06/21/19 08:04 Bedside Glucose 183 189 White Blood Count 10.8 # Red Blood Count 3.14 L Hemoglobin 8.7 L Hematocrit 27.3 L Mean Corpuscular Volume 86.9 Mean Corpuscular 27.7 L Hemoglobin Mean Corpuscular 31.9 L Hemoglobin Concent Red Cell Distribution 18.6 H Width Platelet Count 127 L Mean Platelet Volume 11.4 H Immature Granulocytes % 2.400 H Neutrophils % 72.8 Lymphocytes % 15.5 Monocytes % 7.7 Eosinophils % 1.0 Basophils % 0.6 Nucleated Red Blood 1.7 H Cells % Immature Granulocytes # 0.260 H Neutrophils # 7.9 H Lymphocytes # 1.7 Monocytes # 0.8 Eosinophils # 0.1 Basophils # 0.1 Nucleated Red Blood 0.2 H Cells # Sodium Level 144 Potassium Level 3.2 L Chloride Level 111 H Carbon Dioxide Level 26 Anion Gap 7 Blood Urea Nitrogen 14 # Creatinine 0.67 Est Glomerular Filtrat > 60 Rate mL/min Glucose Level 182 Calcium Level 8.3 L Exam/Review of Systems Exam Vitals Vital Signs Date Temp Pulse Resp B/P (MAP) Pulse Ox O2 O2 Flow FiO2 Time Delivery Rate 06/21/19 127 08:00 06/21/19 98.6 17 142/88 99 Room Air 07:00 (106) 06/20/19 3.0 16:15 Intake and Output 06/20/19 06/20/19 06/21/19 1515:00 23:00 07:00 IntakeIntake Total 410 ml 495 ml OutputOutput Total 1350 ml 550 ml BalanceBalance -940 ml -55 ml Results Results 24hrs Laboratory Tests Test 06/20/19 09:49 06/20/19 10:20 06/20/19 11:33 06/20/19 12:36 Bedside Glucose 133 215 205 Lactic Acid Level 1.0 Test 06/20/19 17:32 06/20/19 20:17 06/20/19 21:35 06/21/19 00:54 Bedside Glucose 178 167 Lactic Acid Level 1.0 Vancomycin Level Trough 9.4 L Test 06/21/19 02:25 06/21/19 04:45 06/21/19 08:04 Bedside Glucose 183 189 White Blood Count 10.8 # Red Blood Count 3.14 L Hemoglobin 8.7 L Hematocrit 27.3 L Mean Corpuscular Volume 86.9 Mean Corpuscular 27.7 L Hemoglobin Mean Corpuscular 31.9 L Hemoglobin Concent Red Cell Distribution 18.6 H Width Platelet Count 127 L Mean Platelet Volume 11.4 H Immature Granulocytes % 2.400 H Neutrophils % 72.8 Lymphocytes % 15.5 Monocytes % 7.7 Eosinophils % 1.0 Basophils % 0.6 Nucleated Red Blood 1.7 H Cells % Immature Granulocytes # 0.260 H Neutrophils # 7.9 H Lymphocytes # 1.7 Monocytes # 0.8 Eosinophils # 0.1 Basophils # 0.1 Nucleated Red Blood 0.2 H Cells # Sodium Level 144 Potassium Level 3.2 L Chloride Level 111 H Carbon Dioxide Level 26 Anion Gap 7 Blood Urea Nitrogen 14 # Creatinine 0.67 Est Glomerular Filtrat > 60 Rate mL/min Glucose Level 182 Calcium Level 8.3 L Medications Medication Current Medications IV Flush (NS 3 ml) 3 ml PER PROTOCOL IV ; Start 06/19/19 at 12:30 Ondansetron HCl (Zofran Inj) 4 mg Q6H PRN IV NAUSEA/VOMITING; Start 06/19/19 at 12:30 Acetaminophen (Tylenol Tab) 650 mg Q6H PRN PO .PAIN 1-3 OR TEMP; Start 06/19/19 at 12:30 Acetaminophen/ Hydrocodone Bitart ([place] (5/325)) 1 tab Q6H PRN PO .MOD PAIN 4- 6; Start 06/19/19 at 12:30 Morphine Sulfate (morphine) 2 mg Q4H PRN IV .SEVERE PAIN 7-10; Start 06/19/19 at 12:30 Docusate Sodium (Colace) 100 mg Q12H PRN PO .CONSTIPATION; Start 06/19/19 at 12:30 Magnesium Hydroxide (Milk Of Mag) 30 ml DAILY PRN PO .CONSTIPATION; Start 06/19/19 at 12:30 Lorazepam (Ativan) 0.5 mg Q6H PRN IV ANXIETY Last administered on 06/21/19at 02:34; Admin Dose 0.5 MG; Start 06/19/19 at 12:30 Albuterol/ Ipratropium (Duoneb) 3 ml Q4H RESP THERAPY PRN HHN SHORTNESS OF BREATH; Start 06/19/19 at 12:30 Vancomycin HCl (Vanco Iv Per Pharmacy) VANCOMYCIN PER PHARMACY NOTE XX ; Start 06/19/19 at 12:30 Hydralazine HCl (Apresoline) 10 mg Q6H PRN IV ELEVATED BLOOD PRESSURE; Start 06/19/19 at 12:30 Nitroglycerin (Nitroglycerin (Sl Tab) 0.4 Mg) 1 tab Q5M PRN SL ANGINA; Start 06/19/19 at 12:30 Cefepime HCl 50 ml @ 100 mls/hr Q8 IVPB Last administered on 06/21/19at 06:38; Admin Dose 100 MLS/HR; Start 06/19/19 at 14:00 Sucralfate (Carafate Susp) 1 gm Q12H PRN PO CONSTIPATION; Start 06/19/19 at 15:00 Sodium Chloride 1,000 ml @ 75 mls/hr [id number] IV Last administered on 06/20/19at 23:20; Admin Dose 75 MLS/HR; Start 06/20/19 at 10:00 Diagnostic Test (Pha) (Accu-Chek) 1 ea 02 XX Last administered on 06/21/19at 02:00; Admin Dose 1 EA; Start 06/21/19 at 02:00 Insulin Glargine (Lantus) 16 units DAILY@0800 SC Last administered on 06/21/19at 08:06; Admin Dose 16 UNITS; Start 06/21/19 at 08:00 Insulin Aspart (Novolog Insulin Pen) NOVOLOG *MODERATE* ALGORI... Q4 SC Last administered on 06/21/19at 08:35; Admin Dose 4 UNIT; Start 06/20/19 at 13:00 Miscellaneous Information 1 ea NOTE XX ; Start 06/20/19 at 10:30 Glucose (Glutose) 15 gm Q15M PRN PO DECREASED GLUCOSE; Start 06/20/19 at 10:30 Glucose (Glutose) 22.5 gm Q15M PRN PO DECREASED GLUCOSE; Start 06/20/19 at 10:30 Dextrose (D50w Syringe) 25 ml Q15M PRN IV DECREASED GLUCOSE; Start 06/20/19 at 10:30 Dextrose (D50w Syringe) 50 ml Q15M PRN IV DECREASED GLUCOSE; Start 06/20/19 at 10:30 Glucagon (Glucagen) 1 mg Q15M PRN IM DECREASED GLUCOSE; Start 06/20/19 at 10:30 Glucose (Glutose) 15 gm Q15M PRN BUCCAL DECREASED GLUCOSE; Start 06/20/19 at 10:30 Vancomycin/Sodium Chloride 250 ml @ 83.333 mls/ hr Q12H IVPB ; Start 06/21/19 at 17:00 Miscellaneous Information (*Rx Drug Level Order Reminder*) VANCOMYCIN TROUGH LEVEL 0400 ONCE XX ; Start 06/23/19 at 04:00; Stop 06/23/19 at 04:01 Potassium Chloride 50 ml @ 25 mls/hr Q2H IVPB ; Start 06/21/19 at 09:00; Stop 06/21/19 at 12:59; Status UNV Pantoprazole (Protonix Iv) 40 mg BID@,18 IV ; Start 06/21/19 at 18:00; Status UNV SHONNA RING Jun 21, 2019 08:49
[2019-06-21] MEDS: DEXTROSE 5%-0.45% NACL 1,000 ML IV SCH (08:55)
[2019-06-21] MEDS: POTASSIUM CHLORIDE 50 ML IVPB SCH ×2 (08:55→10:53)
[2019-06-21] MEDS: VANCOMYCIN 1.25 GM/NS 250 ML 250 ML IVPB SCH (13:56)
--- NOTE | 2019-06-21 16:59 | PN ---
Date/Time of Note Date/Time of Note DATE: 06/21/19 TIME: 16:50 Assessment/Plan VTE Prophylaxis Risk score (from Ns)>0 risk: 8 SCD applied (from Ns): Yes Pharmacological prophylaxis: heparin Pharm contraindication: bleeding Lines/Catheters IV Catheter Type (from Nrsg): PICC Line Central line still needed: Yes Urinary Cath still in place: Yes Reason Cath still needed: pres ulcer contaminated by urine, skin wounds contaminated by urine Assessment/Plan Assessment/Plan Assessment: Severe anemia with reported melena S/p EGD 06/20/19: -findings of distal esophagitis Coagulopathy Lactacidosis Leukocytosis Dehydration Hyperglycemia- with likely underlying DM Left sided weakness -Hx of tracheostomy and PEG- based on exam CT brain - 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 Cooper Subjective: Patient is alert today, appears comfortable though unable to speak. No evidence of overt GI bleeding, hemoglobin is stable. Will advance to clear liquids and he was evaluate by speech therapy. Continue current regimen. PHYSICAL EXAMINATION: GENERAL: Pale, lethargic, confused- not able to make needs known SKIN: No lesions HEAD: Normocephalic, atraumatic, no tenderness. EYES: Pupils equal reactive to light and accommodation, no discharge. EARS/NOSE AND THROAT: Ears normal, nose normal, oropharynx normal, oral membranes well hydrated without lesions. NECK: Supple, no masses. CHEST: Inspection within normal limits. CARDIOVASCULAR: Heart: Regular rate and rhythm RESPIRATORY: Lungs clear to auscultation GASTROINTESTINAL AND LIVER: Abdomen: Soft, upper abdominal pain with palpation, non-distended, no hernias, no masses, no guarding, no rebound tenderness, normoactive bowel sounds. Rectal: Deferred. EXTREMITIES: No cyanosis, clubbing or edema. Result Diagram: 06/21/19 0445 06/21/19 0445 Results 24hrs Laboratory Tests Test 06/20/19 17:32 06/20/19 20:17 06/20/19 21:35 06/21/19 00:54 Bedside Glucose 178 167 Lactic Acid Level 1.0 Vancomycin Level Trough 9.4 L Test 06/21/19 02:25 06/21/19 04:45 06/21/19 08:04 06/21/19 13:52 Bedside Glucose 183 189 195 White Blood Count 10.8 # Red Blood Count 3.14 L Hemoglobin 8.7 L Hematocrit 27.3 L Mean Corpuscular Volume 86.9 Mean Corpuscular 27.7 L Hemoglobin Mean Corpuscular 31.9 L Hemoglobin Concent Red Cell Distribution 18.6 H Width Platelet Count 127 L Mean Platelet Volume 11.4 H Immature Granulocytes % 2.400 H Neutrophils % 72.8 Lymphocytes % 15.5 Monocytes % 7.7 Eosinophils % 1.0 Basophils % 0.6 Nucleated Red Blood 1.7 H Cells % Immature Granulocytes # 0.260 H Neutrophils # 7.9 H Lymphocytes # 1.7 Monocytes # 0.8 Eosinophils # 0.1 Basophils # 0.1 Nucleated Red Blood 0.2 H Cells # Sodium Level 144 Potassium Level 3.2 L Chloride Level 111 H Carbon Dioxide Level 26 Anion Gap 7 Blood Urea Nitrogen 14 # Creatinine 0.67 Est Glomerular Filtrat > 60 Rate mL/min Glucose Level 182 Calcium Level 8.3 L CC: JAZZ COOPER MD ; Exam/Review of Systems Exam Vitals Vital Signs Date Temp Pulse Resp B/P (MAP) Pulse Ox O2 O2 Flow FiO2 Time Delivery Rate 06/21/19 98.6 105 20 129/88 99 Room Air 16:00 (102) 06/20/19 3.0 16:15 Intake and Output 06/20/19 06/20/19 06/21/19 1515:00 23:00 07:00 IntakeIntake Total 410 ml 495 ml 50 ml OutputOutput Total 1350 ml 550 ml 40 ml BalanceBalance -940 ml -55 ml 10 ml Results Results 24hrs Laboratory Tests Test 06/20/19 17:32 06/20/19 20:17 06/20/19 21:35 06/21/19 00:54 Bedside Glucose 178 167 Lactic Acid Level 1.0 Vancomycin Level Trough 9.4 L Test 06/21/19 02:25 06/21/19 04:45 06/21/19 08:04 06/21/19 13:52 Bedside Glucose 183 189 195 White Blood Count 10.8 # Red Blood Count 3.14 L Hemoglobin 8.7 L Hematocrit 27.3 L Mean Corpuscular Volume 86.9 Mean Corpuscular 27.7 L Hemoglobin Mean Corpuscular 31.9 L Hemoglobin Concent Red Cell Distribution 18.6 H Width Platelet Count 127 L Mean Platelet Volume 11.4 H Immature Granulocytes % 2.400 H Neutrophils % 72.8 Lymphocytes % 15.5 Monocytes % 7.7 Eosinophils % 1.0 Basophils % 0.6 Nucleated Red Blood 1.7 H Cells % Immature Granulocytes # 0.260 H Neutrophils # 7.9 H Lymphocytes # 1.7 Monocytes # 0.8 Eosinophils # 0.1 Basophils # 0.1 Nucleated Red Blood 0.2 H Cells # Sodium Level 144 Potassium Level 3.2 L Chloride Level 111 H Carbon Dioxide Level 26 Anion Gap 7 Blood Urea Nitrogen 14 # Creatinine 0.67 Est Glomerular Filtrat > 60 Rate mL/min Glucose Level 182 Calcium Level 8.3 L Medications Medication Current Medications IV Flush (NS 3 ml) 3 ml PER PROTOCOL IV ; Start 06/19/19 at 12:30 Ondansetron HCl (Zofran Inj) 4 mg Q6H PRN IV NAUSEA/VOMITING; Start 06/19/19 at 12:30 Acetaminophen (Tylenol Tab) 650 mg Q6H PRN PO .PAIN 1-3 OR TEMP; Start 06/19/19 at 12:30 Acetaminophen/ Hydrocodone Bitart ([place] (5/325)) 1 tab Q6H PRN PO .MOD PAIN 4- 6; Start 06/19/19 at 12:30 Morphine Sulfate (morphine) 2 mg Q4H PRN IV .SEVERE PAIN 7-10; Start 06/19/19 at 12:30 Docusate Sodium (Colace) 100 mg Q12H PRN PO .CONSTIPATION; Start 06/19/19 at 12:30 Magnesium Hydroxide (Milk Of Mag) 30 ml DAILY PRN PO .CONSTIPATION; Start 06/19/19 at 12:30 Lorazepam (Ativan) 0.5 mg Q6H PRN IV ANXIETY Last administered on 06/21/19at 02:34; Admin Dose 0.5 MG; Start 06/19/19 at 12:30 Albuterol/ Ipratropium (Duoneb) 3 ml Q4H RESP THERAPY PRN HHN SHORTNESS OF BREATH; Start 06/19/19 at 12:30 Vancomycin HCl (Vanco Iv Per Pharmacy) VANCOMYCIN PER PHARMACY NOTE XX ; Start 06/19/19 at 12:30 Hydralazine HCl (Apresoline) 10 mg Q6H PRN IV ELEVATED BLOOD PRESSURE; Start 06/19/19 at 12:30 Nitroglycerin (Nitroglycerin (Sl Tab) 0.4 Mg) 1 tab Q5M PRN SL ANGINA; Start 06/19/19 at 12:30 Cefepime HCl 50 ml @ 100 mls/hr Q8 IVPB Last administered on 06/21/19at 13:56; Admin Dose 100 MLS/HR; Start 06/19/19 at 14:00 Sucralfate (Carafate Susp) 1 gm Q12H PRN PO CONSTIPATION; Start 06/19/19 at 15 :00 Diagnostic Test (Pha) (Accu-Chek) 1 ea 02 XX Last administered on 06/21/19at 02:00; Admin Dose 1 EA; Start 06/21/19 at 02:00 Insulin Glargine (Lantus) 16 units DAILY@0800 SC Last administered on 06/21/19at 08:06; Admin Dose 16 UNITS; Start 06/21/19 at 08:00 Insulin Aspart (Novolog Insulin Pen) NOVOLOG *MODERATE* ALGORI... Q4 SC Last administered on 06/21/19at 14:00; Admin Dose 4 UNIT; Start 06/20/19 at 13:00 Miscellaneous Information 1 ea NOTE XX ; Start 06/20/19 at 10:30 Glucose (Glutose) 15 gm Q15M PRN PO DECREASED GLUCOSE; Start 06/20/19 at 10:30 Glucose (Glutose) 22.5 gm Q15M PRN PO DECREASED GLUCOSE; Start 06/20/19 at 10:30 Dextrose (D50w Syringe) 25 ml Q15M PRN IV DECREASED GLUCOSE; Start 06/20/19 at 10:30 Dextrose (D50w Syringe) 50 ml Q15M PRN IV DECREASED GLUCOSE; Start 06/20/19 at 10:30 Glucagon (Glucagen) 1 mg Q15M PRN IM DECREASED GLUCOSE; Start 06/20/19 at 10:30 Glucose (Glutose) 15 gm Q15M PRN BUCCAL DECREASED GLUCOSE; Start 06/20/19 at 10:30 Vancomycin/Sodium Chloride 250 ml @ 83.333 mls/ hr Q12H IVPB Last administered on 06/21/19at 13:56; Admin Dose 83.333 MLS/HR; Start 06/21/19 at 14:00 Pantoprazole (Protonix Iv) 40 mg BID@06,18 IV ; Start 06/21/19 at 18:00 Dextrose/Sodium Chloride 1,000 ml @ 75 mls/hr [id number] IV Last administered on 06/21/19at 08:55; Admin Dose 75 MLS/HR; Start 06/21/19 at 09:00 PITO NERI NP Jun 21, 2019 16:59
[2019-06-21] MEDS: PANTOPRAZOLE 40 MG INJ IV SCH (17:38)
[2019-06-22] VITALS (10 sets, daily range): BP systolic 108–148; BP diastolic 72–92; PULSE 92–115; RESP 17–21
[2019-06-22] MEDS: DEXTROSE 5%-0.45% NACL 1,000 ML IV SCH ×3 (01:07→17:07)
[2019-06-22] MEDS: INSULIN ASPART [NOVOLOG] 3 ML PEN SC SCH ×5 (01:22→20:43)
[2019-06-22] MEDS: ACCU-CHEK XX SCH (02:00)
[2019-06-22] MEDS: LORAZEPAM 2 MG INJ IV PRN ×2 (02:23→19:48)
[2019-06-22] MEDS: VANCOMYCIN 1.25 GM/NS 250 ML 250 ML IVPB SCH ×2 (03:26→15:15)
[2019-06-22] MEDS: PANTOPRAZOLE 40 MG INJ IV SCH ×2 (05:29→17:06)
[2019-06-22] MEDS: CEFEPIME 2GM/50 ML (PMX) 50 ML IVPB SCH ×3 (05:30→21:34)
[2019-06-22] MEDS: INSULIN GLARGINE [LANTus] (100 UNITS/ML) SYG SC SCH (08:48)
[2019-06-22] MEDS ORDERED: POTASSIUM CHLORIDE (SR) 20 MEQ TAB PO STA (11:36)
--- NOTE | 2019-06-22 11:41 | PN ---
Date/Time of Note Date/Time of Note DATE: 06/22/19 TIME: 11:39 Assessment/Plan VTE Prophylaxis Risk score (from [facility] [place])>0 risk: 10 SCD applied (from [facility] [place]): Yes Pharmacological prophylaxis: NA/contraindicated Pharm contraindication: blood coag disorder Lines/Catheters IV Catheter Type (from [facility]): PICC Line Central line still needed: Yes Urinary Cath still in place: Yes Reason Cath still needed: urinary retention Assessment/Plan Hospital Course S: Patient had EGD yesterday. Still n.p.o. White blood cell count improved. No acute events overnight otherwise, although requiring restraint on one extremity. O: VS- see below PHYSICAL EXAMINATION: GENERAL: Lying in bed, slightly more alert, answering simple questions HEENT: Pupils equal, round and reactive to light. Extraocular muscles intact. NECK: Supple, no thyromegaly. LUNGS: Clear to auscultation bilaterally. CARDIOVASCULAR: Tachycardic heart rate. No rubs or gallops. ABDOMEN: Soft, somewhat distended, but otherwise nontender. Normal bowel sounds. No rebound or guarding. MUSCULOSKELETAL: No lower extremity edema bilaterally. NEUROLOGIC: appears to have some left-sided weakness symptoms. EGD 06/20/19: Distal esophagitis ASSESSMENT AND PLAN: 64-year-old male with past medical history of left-sided weakness tracheostomy placement, PEG placement, likely diabetes with hyperglycemia who presents with severe anemia, altered mental status, hyper glycemia, lactic acidosis. 1. Severe anemia -hemoglobin now improved after 4 units PRBC given earlier this admission, hemoglobin more stable in the 8 range now. On admission the patient did have some dark stools in the ER. No signs of any upper GI bleeding. Status post EGD on 06/20/19 - continue to monitor CBC. - Continue IV fluids, EGD showed some distal esophagitis but otherwise was normal, continue PPI twice daily per GI recommendations - Follow-up further recommendations from PT and speech therapy evaluations as well, until then keep n.p.o. for now. - It is was medical necessity as well to have the patient have a PICC placed as he is unable to provide consent at this time and there are no family members available to provide consent. 2. Altered mental status likely secondary to #1. Likely secondary to sepsis and anemia, patient more alert the last 3 days - Continue to monitor for now. Head CT results noted. No acute findings. 3. Lactic acidosis with leukocytosis-resolving now, unclear source. UA did not show any signs of any UTI. Blood culture 1 bottle shows positive enterococcus. Chest x-ray did not show any potential source of infection. CT abdomen and pe lvis did not show any further source of infection. - for now, continue IV fluid hydration - Continue current broad-spectrum antibiotics for now. We will follow up final culture results. 4. Hyperglycemia-sugars in the high normal range now, on admission were in the 500 range although the anion gap was normal. Bicarbonate is only mildly decreased. Latest A1c 5.8 - Continue IV fluid hydration, subcu insulin and Lantus 5. Left-sided weakness. Again, unclear source of this patient may have had a history of an old stroke. He does have a history of prior tracheostomy and PEG. On his home medicine list he was taken Xarelto, presumably for prior stroke? - Continue to monitor for now. - Obviously holding all anticoagulants given the severe anemia patient presented with. 5. Gastrointestinal prophylaxis. PPI. 6. DVT prophylaxis. Avoid all anticoagulants-SCDs for now. Result Diagram: 06/22/19 0547 06/22/19 0547 Results 24hrs Laboratory Tests Test 06/21/19 13:52 06/21/19 17:40 06/21/19 21:47 06/22/19 01:09 Bedside Glucose 195 194 182 151 Test 06/22/19 05:27 06/22/19 05:47 06/22/19 08:41 Bedside Glucose 171 203 White Blood Count 9.0 Red Blood Count 2.91 L Hemoglobin 8.1 L Hematocrit 25.5 L Mean Corpuscular Volume 87.6 Mean Corpuscular 27.8 L Hemoglobin Mean Corpuscular 31.8 L Hemoglobin Concent Red Cell Distribution 17.5 H Width Platelet Count 125 L Mean Platelet Volume 11.1 H Immature Granulocytes % 0.400 Neutrophils % 70.6 Lymphocytes % 17.2 Monocytes % 8.0 Eosinophils % 3.4 Basophils % 0.4 Nucleated Red Blood 0.8 H Cells % Immature Granulocytes # 0.040 H Neutrophils # 6.3 Lymphocytes # 1.5 Monocytes # 0.7 Eosinophils # 0.3 Basophils # 0.0 Nucleated Red Blood 0.1 H Cells # Sodium Level 141 Potassium Level 3.0 L Chloride Level 107 Carbon Dioxide Level 26 Anion Gap 8 Blood Urea Nitrogen 8 Creatinine 0.64 Est Glomerular Filtrat > 60 Rate mL/min Glucose Level 157 Calcium Level 8.1 L Phosphorus Level 2.5 Magnesium Level 1.7 Exam/Review of Systems Exam Vitals Vital Signs Date Temp Pulse Resp B/P (MAP) Pulse Ox O2 O2 Flow FiO2 Time Delivery Rate 06/22/19 98.8 101 20 119/75 98 Room Air 11:15 (90) 06/20/19 3.0 16:15 Intake and Output 06/21/19 06/21/19 06/22/19 1515:00 23:00 07:00 IntakeIntake Total 100 ml 100 ml 799.99 ml OutputOutput Total 140 ml 500 ml 800 ml BalanceBalance -40 ml -400 ml -0.01 ml Results Results 24hrs Laboratory Tests Test 06/21/19 13:52 06/21/19 17:40 06/21/19 21:47 06/22/19 01:09 Bedside Glucose 195 194 182 151 Test 06/22/19 05:27 06/22/19 05:47 06/22/19 08:41 Bedside Glucose 171 203 White Blood Count 9.0 Red Blood Count 2.91 L Hemoglobin 8.1 L Hematocrit 25.5 L Mean Corpuscular Volume 87.6 Mean Corpuscular 27.8 L Hemoglobin Mean Corpuscular 31.8 L Hemoglobin Concent Red Cell Distribution 17.5 H Width Platelet Count 125 L Mean Platelet Volume 11.1 H Immature Granulocytes % 0.400 Neutrophils % 70.6 Lymphocytes % 17.2 Monocytes % 8.0 Eosinophils % 3.4 Basophils % 0.4 Nucleated Red Blood 0.8 H Cells % Immature Granulocytes # 0.040 H Neutrophils # 6.3 Lymphocytes # 1.5 Monocytes # 0.7 Eosinophils # 0.3 Basophils # 0.0 Nucleated Red Blood 0.1 H Cells # Sodium Level 141 Potassium Level 3.0 L Chloride Level 107 Carbon Dioxide Level 26 Anion Gap 8 Blood Urea Nitrogen 8 Creatinine 0.64 Est Glomerular Filtrat > 60 Rate mL/min Glucose Level 157 Calcium Level 8.1 L Phosphorus Level 2.5 Magnesium Level 1.7 Medications Medication Current Medications IV Flush (NS 3 ml) 3 ml PER PROTOCOL IV ; Start 06/19/19 at 12:30 Ondansetron HCl (Zofran Inj) 4 mg Q6H PRN IV NAUSEA/VOMITING; Start 06/19/19 at 12:30 Acetaminophen (Tylenol Tab) 650 mg Q6H PRN PO .PAIN 1-3 OR TEMP; Start 06/19/19 at 12:30 Acetaminophen/ Hydrocodone Bitart ([place] (5/325)) 1 tab Q6H PRN PO .MOD PAIN 4- 6; Start 06/19/19 at 12:30 Morphine Sulfate (morphine) 2 mg Q4H PRN IV .SEVERE PAIN 7-10; Start 06/19/19 at 12:30 Docusate Sodium (Colace) 100 mg Q12H PRN PO .CONSTIPATION; Start 06/19/19 at 12:30 Magnesium Hydroxide (Milk Of Mag) 30 ml DAILY PRN PO .CONSTIPATION; Start 06/19/19 at 12:30 Lorazepam (Ativan) 0.5 mg Q6H PRN IV ANXIETY Last administered on 06/22/19at 02: 23; Admin Dose 0.5 MG; Start 06/19/19 at 12:30 Albuterol/ Ipratropium (Duoneb) 3 ml Q4H RESP THERAPY PRN HHN SHORTNESS OF BREATH; Start 06/19/19 at 12:30 Vancomycin HCl (Vanco Iv Per Pharmacy) VANCOMYCIN PER PHARMACY NOTE XX ; Start 06/19/19 at 12:30 Hydralazine HCl (Apresoline) 10 mg Q6H PRN IV ELEVATED BLOOD PRESSURE; Start 06/19/19 at 12:30 Nitroglycerin (Nitroglycerin (Sl Tab) 0.4 Mg) 1 tab Q5M PRN SL ANGINA; Start 06/19/19 at 12:30 Cefepime HCl 50 ml @ 100 mls/hr Q8 IVPB Last administered on 06/22/19at 05:30; Admin Dose 100 MLS/HR; Start 06/19/19 at 14:00 Sucralfate (Carafate Susp) 1 gm Q12H PRN PO CONSTIPATION; Start 06/19/19 at 15:00 Diagnostic Test (Pha) (Accu-Chek) 1 ea 02 XX Last administered on 06/21/19at 02:00; Admin Dose 1 EA; Start 06/21/19 at 02:00 Insulin Glargine (Lantus) 16 units DAILY@0800 SC Last administered on 06/22/19at 08:48; Admin Dose 16 UNITS; Start 06/21/19 at 08:00 Insulin Aspart (Novolog Insulin Pen) NOVOLOG *MODERATE* ALGORI... Q4 SC Last administered on 06/22/19at 08:48; Admin Dose 4 UNIT; Start 06/20/19 at 13:00 Miscellaneous Information 1 ea NOTE XX ; Start 06/20/19 at 10:30 Glucose (Glutose) 15 gm Q15M PRN PO DECREASED GLUCOSE; Start 06/20/19 at 10:30 Glucose (Glutose) 22.5 gm Q15M PRN PO DECREASED GLUCOSE; Start 06/20/19 at 10:30 Dextrose (D50w Syringe) 25 ml Q15M PRN IV DECREASED GLUCOSE; Start 06/20/19 at 10:30 Dextrose (D50w Syringe) 50 ml Q15M PRN IV DECREASED GLUCOSE; Start 06/20/19 at 10:30 Glucagon (Glucagen) 1 mg Q15M PRN IM DECREASED GLUCOSE; Start 06/20/19 at 10:30 Glucose (Glutose) 15 gm Q15M PRN BUCCAL DECREASED GLUCOSE; Start 06/20/19 at 10:30 Vancomycin/Sodium Chloride 250 ml @ 83.333 mls/ hr Q12H IVPB Last administered on 06/22/19at 03:26; Admin Dose 83.333 MLS/HR; Start 06/21/19 at 14:00 Pantoprazole (Protonix Iv) 40 mg BID@06,18 IV Last administered on 06/22/19at 05:29; Admin Dose 40 MG; Start 06/21/19 at 18:00 Dextrose/Sodium Chloride 1,000 ml @ 75 mls/hr [id number] IV Last administered on 06/22/19at 01:07; Admin Dose 75 MLS/HR; Start 06/21/19 at 09:00 Potassium Chloride (Klor-Con 20) 40 meq ONCE STAT PO ; Start 06/22/19 at 11:36; Stop 06/22/19 at 11:37; Status SHONNA MCCARTHY Jun 22, 2019 11:41
--- NOTE | 2019-06-22 16:37 | PN ---
Date/Time of Note Date/Time of Note DATE: 06/22/19 TIME: 16:31 Assessment/Plan VTE Prophylaxis Risk score (from Ns)>0 risk: 10 SCD applied (from Ns): Yes Pharmacological prophylaxis: NA/contraindicated Pharm contraindication: bleeding Lines/Catheters IV Catheter Type (from Nrsg): PICC Line Central line still needed: Yes Urinary Cath still in place: Yes Reason Cath still needed: skin wounds contaminated by urine Assessment/Plan Assessment/Plan Assessment: Severe anemia with reported melena S/p EGD 06/20/19: -findings of distal esophagitis Coagulopathy Lactacidosis Leukocytosis Dehydration Hyperglycemia- with likely underlying DM Left sided weakness -Hx of tracheostomy and PEG- based on exam CT brain - Densely calcified right M1 middle cerebral artery which may be chronically thrombosed Plan: Advance to full liquid diet Continue PPI SW consult pending Monitor H/H, transfuse for Hgb less than 7.5- recheck INR in am Patient seen in collaboration with Dr. Cooper Subjective: Patient is alert today, appears comfortable though able to speak short sentences. No evidence of overt GI bleeding, hemoglobin is stable. Tolerating clear liquids. Will advance to full liquids. Continue current regimen. PHYSICAL EXAMINATION: GENERAL: Pale, lethargic, confused, speech slurred SKIN: No lesions HEAD: Normocephalic, atraumatic, no tenderness. EYES: Pupils equal reactive to light and accommodation, no discharge. EARS/NOSE AND THROAT: Ears normal, nose normal, oropharynx normal, oral membranes well hydrated without lesions. NECK: Supple, no masses. CHEST: Inspection within normal limits. CARDIOVASCULAR: Heart: Regular rate and rhythm RESPIRATORY: Lungs clear to auscultation GASTROINTESTINAL AND LIVER: Abdomen: Soft, upper abdominal pain with palpation, non-distended, no hernias, no masses, no guarding, no rebound tenderness, normoactive bowel sounds. Rectal: Deferred. EXTREMITIES: No cyanosis, clubbing or edema. Result Diagram: 06/22/19 0547 06/22/19 0547 Results 24hrs Laboratory Tests Test 06/21/19 17:40 06/21/19 21:47 06/22/19 01:09 06/22/19 05:27 Bedside Glucose 194 182 151 171 Test 06/22/19 05:47 06/22/19 08:41 06/22/19 12:03 White Blood Count 9.0 Red Blood Count 2.91 L Hemoglobin 8.1 L Hematocrit 25.5 L Mean Corpuscular Volume 87.6 Mean Corpuscular 27.8 L Hemoglobin Mean Corpuscular 31.8 L Hemoglobin Concent Red Cell Distribution 17.5 H Width Platelet Count 125 L Mean Platelet Volume 11.1 H Immature Granulocytes % 0.400 Neutrophils % 70.6 Lymphocytes % 17.2 Monocytes % 8.0 Eosinophils % 3.4 Basophils % 0.4 Nucleated Red Blood 0.8 H Cells % Immature Granulocytes # 0.040 H Neutrophils # 6.3 Lymphocytes # 1.5 Monocytes # 0.7 Eosinophils # 0.3 Basophils # 0.0 Nucleated Red Blood 0.1 H Cells # Sodium Level 141 Potassium Level 3.0 L Chloride Level 107 Carbon Dioxide Level 26 Anion Gap 8 Blood Urea Nitrogen 8 Creatinine 0.64 Est Glomerular Filtrat > 60 Rate mL/min Glucose Level 157 Calcium Level 8.1 L Phosphorus Level 2.5 Magnesium Level 1.7 Bedside Glucose 203 169 CC: JAZZ COOPER MD ; Exam/Review of Systems Exam Vitals Vital Signs Date Temp Pulse Resp B/P (MAP) Pulse Ox O2 O2 Flow FiO2 Time Delivery Rate 06/22/19 97.8 92 20 122/79 100 Room Air 15:15 (93) 06/20/19 3.0 16:15 Intake and Output 06/21/19 06/21/19 06/22/19 1515:00 23:00 07:00 IntakeIntake Total 100 ml 100 ml 799.99 ml OutputOutput Total 140 ml 500 ml 800 ml BalanceBalance -40 ml -400 ml -0.01 ml Results Results 24hrs Laboratory Tests Test 06/21/19 17:40 06/21/19 21:47 06/22/19 01:09 06/22/19 05:27 Bedside Glucose 194 182 151 171 Test 06/22/19 05:47 06/22/19 08:41 06/22/19 12:03 White Blood Count 9.0 Red Blood Count 2.91 L Hemoglobin 8.1 L Hematocrit 25.5 L Mean Corpuscular Volume 87.6 Mean Corpuscular 27.8 L Hemoglobin Mean Corpuscular 31.8 L Hemoglobin Concent Red Cell Distribution 17.5 H Width Platelet Count 125 L Mean Platelet Volume 11.1 H Immature Granulocytes % 0.400 Neutrophils % 70.6 Lymphocytes % 17.2 Monocytes % 8.0 Eosinophils % 3.4 Basophils % 0.4 Nucleated Red Blood 0.8 H Cells % Immature Granulocytes # 0.040 H Neutrophils # 6.3 Lymphocytes # 1.5 Monocytes # 0.7 Eosinophils # 0.3 Basophils # 0.0 Nucleated Red Blood 0.1 H Cells # Sodium Level 141 Potassium Level 3.0 L Chloride Level 107 Carbon Dioxide Level 26 Anion Gap 8 Blood Urea Nitrogen 8 Creatinine 0.64 Est Glomerular Filtrat > 60 Rate mL/min Glucose Level 157 Calcium Level 8.1 L Phosphorus Level 2.5 Magnesium Level 1.7 Bedside Glucose 203 169 Medications Medication Current Medications IV Flush (NS 3 ml) 3 ml PER PROTOCOL IV ; Start 06/19/19 at 12:30 Ondansetron HCl (Zofran Inj) 4 mg Q6H PRN IV NAUSEA/VOMITING; Start 06/19/19 at 12:30 Acetaminophen (Tylenol Tab) 650 mg Q6H PRN PO .PAIN 1-3 OR TEMP; Start 06/19/19 at 12:30 Acetaminophen/ Hydrocodone Bitart ([place] (5/325)) 1 tab Q6H PRN PO .MOD PAIN 4- 6; Start 06/19/19 at 12:30 Morphine Sulfate (morphine) 2 mg Q4H PRN IV .SEVERE PAIN 7-10; Start 06/19/19 at 12:30 Docusate Sodium (Colace) 100 mg Q12H PRN PO .CONSTIPATION; Start 06/19/19 at 12:30 Magnesium Hydroxide (Milk Of Mag) 30 ml DAILY PRN PO .CONSTIPATION; Start 06/19/19 at 12:30 Lorazepam (Ativan) 0.5 mg Q6H PRN IV ANXIETY Last administered on 06/22/19at 02:23; Admin Dose 0.5 MG; Start 06/19/19 at 12:30 Albuterol/ Ipratropium (Duoneb) 3 ml Q4H RESP THERAPY PRN HHN SHORTNESS OF BREATH; Start 06/19/19 at 12:30 Vancomycin HCl (Vanco Iv Per Pharmacy) VANCOMYCIN PER PHARMACY NOTE XX ; Start 06/19/19 at 12:30 Hydralazine HCl (Apresoline) 10 mg Q6H PRN IV ELEVATED BLOOD PRESSURE; Start 06/19/19 at 12:30 Nitroglycerin (Nitroglycerin (Sl Tab) 0.4 Mg) 1 tab Q5M PRN SL ANGINA; Start 06/19/19 at 12:30 Cefepime HCl 50 ml @ 100 mls/hr Q8 IVPB Last administered on 06/22/19at 15:14; Admin Dose 100 MLS/HR; Start 06/19/19 at 14:00 Sucralfate (Carafate Susp) 1 gm Q12H PRN PO CONSTIPATION; Start 06/19/19 at 15:00 Diagnostic Test (Pha) (Accu-Chek) 1 ea 02 XX Last administered on 06/21/19at 02:00; Admin Dose 1 EA; Start 06/21/19 at 02:00 Insulin Glargine (Lantus) 16 units DAILY@0800 SC Last administered on 06/22/19at 08:48; Admin Dose 16 UNITS; Start 06/21/19 at 08:00 Miscellaneous Information 1 ea NOTE XX ; Start 06/20/19 at 10:30 Glucose (Glutose) 15 gm Q15M PRN PO DECREASED GLUCOSE; Start 06/20/19 at 10:30 Glucose (Glutose) 22.5 gm Q15M PRN PO DECREASED GLUCOSE; Start 06/20/19 at 10:30 Dextrose (D50w Syringe) 25 ml Q15M PRN IV DECREASED GLUCOSE; Start 06/20/19 at 10:30 Dextrose (D50w Syringe) 50 ml Q15M PRN IV DECREASED GLUCOSE; Start 06/20/19 at 10:30 Glucagon (Glucagen) 1 mg Q15M PRN IM DECREASED GLUCOSE; Start 06/20/19 at 10:30 Glucose (Glutose) 15 gm Q15M PRN BUCCAL DECREASED GLUCOSE; Start 06/20/19 at 10:30 Vancomycin/Sodium Chloride 250 ml @ 83.333 mls/ hr Q12H IVPB Last administered on 06/22/19at 15:15; Admin Dose 83.333 MLS/HR; Start 06/21/19 at 14:00 Pantoprazole (Protonix Iv) 40 mg BID@06,18 IV Last administered on 06/22/19at 05:29; Admin Dose 40 MG; Start 06/21/19 at 18:00 Dextrose/Sodium Chloride 1,000 ml @ 75 mls/hr [id number] IV Last administered on 06/22/19at 01:07; Admin Dose 75 MLS/HR; Start 06/21/19 at 09:00 Insulin Aspart (Novolog Insulin Pen) NOVOLOG *MODERATE* ALGORI... AC MEALS AND BEDTIME SC ; Start 06/22/19 at 17:25 Miscellaneous Information (*Rx Drug Level Order Reminder*) RACHEL GUTIÉRREZ 1300 ONCE XX ; Start 06/23/19 at 13:00; Stop 06/23/19 at 13:01 PITO NERI NP Jun 22, 2019 16:37
[2019-06-23] VITALS (14 sets, daily range): BP systolic 119–153; BP diastolic 75–96; PULSE 89–108; RESP 18–24
[2019-06-23] MEDS: ACCU-CHEK XX SCH (02:39)
[2019-06-23] MEDS: VANCOMYCIN 1.25 GM/NS 250 ML 250 ML IVPB SCH ×2 (02:39→15:26)
[2019-06-23] MEDS: PANTOPRAZOLE 40 MG INJ IV SCH ×2 (05:17→17:23)
[2019-06-23] MEDS: CEFEPIME 2GM/50 ML (PMX) 50 ML IVPB SCH ×2 (05:17→15:13)
[2019-06-23] MEDS: INSULIN ASPART [NOVOLOG] 3 ML PEN SC SCH ×5 (07:55→20:33)
[2019-06-23] MEDS: INSULIN GLARGINE [LANTus] (100 UNITS/ML) SYG SC SCH (07:56)
[2019-06-23] MEDS: DEXTROSE 5%-0.45% NACL 1,000 ML IV SCH ×2 (08:56→23:12)
[2019-06-23] MEDS: LORAZEPAM 2 MG INJ IV PRN ×2 (09:25→15:40)
--- NOTE | 2019-06-23 13:08 | PN ---
Date/Time of Note Date/Time of Note DATE: 06/23/19 TIME: 13:02 Assessment/Plan VTE Prophylaxis Risk score (from Ns)>0 risk: 8 SCD applied (from Ns): Yes Pharmacological prophylaxis: NA/contraindicated Pharm contraindication: bleeding Lines/Catheters IV Catheter Type (from Nrsg): PICC Line Central line still needed: Yes (meds) Urinary Cath still in place: Yes Reason Cath still needed: other (indicate) (monitor output) Assessment/Plan Hospital Course Assessment: Severe anemia with reported melena S/p EGD 06/20/19: -findings of distal esophagitis Coagulopathy Lactacidosis Leukocytosis Bacteremia- repeat blood cx- neg thus far Dehydration Hyperglycemia- with likely underlying DM Left sided weakness -Hx of tracheostomy and PEG- based on exam CT brain - Densely calcified right M1 middle cerebral artery which may be chronically thrombosed Plan: Advance to full liquid diet- f/u ST recommendations Continue PPI therapy monitor H/H, transfuse as needed Patient seen in collaboration with Dr. Cooper Subjective: Patient is alert today, able to answer questions asked No overt signs of GI bleed, pt has not had a BM- will add MiraLAX to current regimen Continue observation. PHYSICAL EXAMINATION: GENERAL: Awake alert and oriented, able to make needs known SKIN: No lesions HEAD: Normocephalic, atraumatic, no tenderness. EYES: Pupils equal reactive to light and accommodation, no discharge. EARS/NOSE AND THROAT: Ears normal, nose normal, oropharynx normal, oral membranes well hydrated without lesions. NECK: Supple, no masses. CHEST: Inspection within normal limits. CARDIOVASCULAR: Heart: Regular rate and rhythm RESPIRATORY: Lungs clear to auscultation GASTROINTESTINAL AND LIVER: Abdomen: Soft, upper abdominal pain with palpation, non-distended, no hernias, no masses, no guarding, no rebound tenderness, normoactive bowel sounds. Rectal: Deferred. EXTREMITIES: No cyanosis, clubbing or edema Result Diagram: 06/23/19 0744 06/23/19 0744 Results 24hrs Laboratory Tests Test 06/22/19 17:08 06/22/19 20:39 06/23/19 02:39 06/23/19 07:44 Bedside Glucose 198 228 H 169 White Blood Count 8.3 Red Blood Count 3.09 L Hemoglobin 8.5 L Hematocrit 26.5 L Mean Corpuscular 85.8 Volume Mean Corpuscular 27.5 L Hemoglobin Mean Corpuscular 32.1 Hemoglobin Concent Red Cell Distribution 16.7 H Width Platelet Count 153 # Mean Platelet Volume 11.3 H Immature Granulocytes 0.500 H % Neutrophils % 72.9 Lymphocytes % 15.5 Monocytes % 6.5 Eosinophils % 4.2 Basophils % 0.4 Nucleated Red Blood 0.4 H Cells % Immature Granulocytes 0.040 H # Neutrophils # 6.0 Lymphocytes # 1.3 Monocytes # 0.5 Eosinophils # 0.4 Basophils # 0.0 Nucleated Red Blood 0.0 Cells # Sodium Level 140 Potassium Level 3.4 L Chloride Level 106 Carbon Dioxide Level 24 Anion Gap 10 Blood Urea Nitrogen 5 L Creatinine 0.62 Est Glomerular > 60 Filtrat Rate mL/min Glucose Level 185 Calcium Level 8.4 Test 06/23/19 07:52 06/23/19 08:50 06/23/19 11:58 Bedside Glucose 206 281 H Lab Scanned Report REFERENCE LAB Exam/Review of Systems Exam Vitals Vital Signs Date Temp Pulse Resp B/P (MAP) Pulse Ox O2 O2 Flow FiO2 Time Delivery Rate 06/23/19 98.9 103 20 131/86 99 12:12 (101) 06/23/19 Room Air 10:00 06/20/19 3.0 16:15 Intake and Output 06/22/19 06/22/19 06/23/19 1515:00 23:00 07:00 IntakeIntake Total 900 ml OutputOutput Total 1350 ml 1050 ml BalanceBalance 900 ml -1350 ml -1050 ml Results Results 24hrs Laboratory Tests Test 06/22/19 17:08 06/22/19 20:39 06/23/19 02:39 06/23/19 07:44 Bedside Glucose 198 228 H 169 White Blood Count 8.3 Red Blood Count 3.09 L Hemoglobin 8.5 L Hematocrit 26.5 L Mean Corpuscular 85.8 Volume Mean Corpuscular 27.5 L Hemoglobin Mean Corpuscular 32.1 Hemoglobin Concent Red Cell Distribution 16.7 H Width Platelet Count 153 # Mean Platelet Volume 11.3 H Immature Granulocytes 0.500 H % Neutrophils % 72.9 Lymphocytes % 15.5 Monocytes % 6.5 Eosinophils % 4.2 Basophils % 0.4 Nucleated Red Blood 0.4 H Cells % Immature Granulocytes 0.040 H # Neutrophils # 6.0 Lymphocytes # 1.3 Monocytes # 0.5 Eosinophils # 0.4 Basophils # 0.0 Nucleated Red Blood 0.0 Cells # Sodium Level 140 Potassium Level 3.4 L Chloride Level 106 Carbon Dioxide Level 24 Anion Gap 10 Blood Urea Nitrogen 5 L Creatinine 0.62 Est Glomerular > 60 Filtrat Rate mL/min Glucose Level 185 Calcium Level 8.4 Test 06/23/19 07:52 06/23/19 08:50 06/23/19 11:58 Bedside Glucose 206 281 H Lab Scanned Report REFERENCE LAB Medications Medication Current Medications IV Flush (NS 3 ml) 3 ml PER PROTOCOL IV ; Start 06/19/19 at 12:30 Ondansetron HCl (Zofran Inj) 4 mg Q6H PRN IV NAUSEA/VOMITING; Start 06/19/19 at 12:30 Acetaminophen (Tylenol Tab) 650 mg Q6H PRN PO .PAIN 1-3 OR TEMP; Start 06/19/19 at 12:30 Acetaminophen/ Hydrocodone Bitart ([place] (5/325)) 1 tab Q6H PRN PO .MOD PAIN 4- 6; Start 06/19/19 at 12:30 Morphine Sulfate (morphine) 2 mg Q4H PRN IV .SEVERE PAIN 7-10; Start 06/19/19 at 12:30 Docusate Sodium (Colace) 100 mg Q12H PRN PO .CONSTIPATION; Start 06/19/19 at 12:30 Magnesium Hydroxide (Milk Of Mag) 30 ml DAILY PRN PO .CONSTIPATION; Start 06/19/19 at 12:30 Lorazepam (Ativan) 0.5 mg Q6H PRN IV ANXIETY Last administered on 06/23/19at 09:25; Admin Dose 0.5 MG; Start 06/19/19 at 12:30 Albuterol/ Ipratropium (Duoneb) 3 ml Q4H RESP THERAPY PRN HHN SHORTNESS OF BREATH; Start 06/19/19 at 12:30 Vancomycin HCl (Vanco Iv Per Pharmacy) VANCOMYCIN PER PHARMACY NOTE XX ; Start 06/19/19 at 12:30 Hydralazine HCl (Apresoline) 10 mg Q6H PRN IV ELEVATED BLOOD PRESSURE; Start 06/19/19 at 12:30 Nitroglycerin (Nitroglycerin (Sl Tab) 0.4 Mg) 1 tab Q5M PRN SL ANGINA; Start 06/19/19 at 12:30 Cefepime HCl 50 ml @ 100 mls/hr Q8 IVPB Last administered on 06/23/19at 05:17; Admin Dose 100 MLS/HR; Start 06/19/19 at 14:00 Sucralfate (Carafate Susp) 1 gm Q12H PRN PO CONSTIPATION; Start 06/19/19 at 15 :00 Diagnostic Test (Pha) (Accu-Chek) 1 ea 02 XX Last administered on 06/23/19at 02:39; Admin Dose 1 EA; Start 06/21/19 at 02:00 Insulin Glargine (Lantus) 16 units DAILY@0800 SC Last administered on 06/23/19at 07:56; Admin Dose 16 UNITS; Start 06/21/19 at 08:00 Miscellaneous Information 1 ea NOTE XX ; Start 06/20/19 at 10:30 Glucose (Glutose) 15 gm Q15M PRN PO DECREASED GLUCOSE; Start 06/20/19 at 10:30 Glucose (Glutose) 22.5 gm Q15M PRN PO DECREASED GLUCOSE; Start 06/20/19 at 10:30 Dextrose (D50w Syringe) 25 ml Q15M PRN IV DECREASED GLUCOSE; Start 06/20/19 at 10:30 Dextrose (D50w Syringe) 50 ml Q15M PRN IV DECREASED GLUCOSE; Start 06/20/19 at 10:30 Glucagon (Glucagen) 1 mg Q15M PRN IM DECREASED GLUCOSE; Start 06/20/19 at 10:30 Glucose (Glutose) 15 gm Q15M PRN BUCCAL DECREASED GLUCOSE; Start 06/20/19 at 10:30 Vancomycin/Sodium Chloride 250 ml @ 83.333 mls/ hr Q12H IVPB Last administered on 06/23/19at 02:39; Admin Dose 83.333 MLS/HR; Start 06/21/19 at 14:00 Pantoprazole (Protonix Iv) 40 mg BID@06,18 IV Last administered on 06/23/19at 05:17; Admin Dose 40 MG; Start 06/21/19 at 18:00 Dextrose/Sodium Chloride 1,000 ml @ 75 mls/hr [id number] IV Last administered on 06/23/19at 08:56; Admin Dose 75 MLS/HR; Start 06/21/19 at 09:00 Insulin Aspart (Novolog Insulin Pen) NOVOLOG *MODERATE* ALGORI... AC MEALS AND BEDTIME SC Last administered on 06/23/19at 12:03; Admin Dose 8 UNIT; Start 06/22/19 at 17:25 DAIANA HERNANDEZ Jun 23, 2019 13:08
[2019-06-23] MEDS: POLYETHYLENE GLYCOL 17 GM PACKET PO SCH (15:13)
--- NOTE | 2019-06-23 16:24 | PN ---
Date/Time of Note Date/Time of Note DATE: 06/23/19 TIME: 16:21 Assessment/Plan VTE Prophylaxis Risk score (from [facility])>0 risk: 8 SCD applied (from [facility]): Yes SCD contraindicated: low risk/ambulating Pharmacological prophylaxis: NA/contraindicated, LMWH Pharm contraindication: blood coag disorder Lines/Catheters IV Catheter Type (from [facility]): PICC Line Central line still needed: Yes Urinary Cath still in place: Yes Reason Cath still needed: urinary retention Assessment/Plan Hospital Course Assessment and plan 1. Hemorrhagic shock? etio? Sp transfusion EGD, stable observe 2. Sirs, stable observe 3. Acute toxic metabolic encephalopathy, improved 4. Type 2 diabetes 5. Essential hypertension 6. Metabolic syndrome 7. Recent left-sided stroke? Follow-up on records from [facility]. no asa for now 8. Failure to thrive, probably stable for discharge to SNF soon 9. Dysphagia continue PEG feeds 10. Malnutrition continue PEG tube feeds 11. Coagulopathy due to unknown cause rule out start process for evaluating liver disease 12. BPH 13. Adjustment disorder Subjective no active bleed. Started on diet. Oriented to but August Objective: Sinus rhythm sinus tach Physical exam No pallor icterus adenopathy droop Regular no murmur gallop Clear Bowel sounds diminished nontender distended? No rigidity rebound guarding, overweight Hypotonia mostly on the left hemiparesis Result Diagram: 06/23/19 0744 06/23/19 0744 Results 24hrs Laboratory Tests Test 06/22/19 17:08 06/22/19 20:39 06/23/19 02:39 06/23/19 07:44 Bedside Glucose 198 228 H 169 White Blood Count 8.3 Red Blood Count 3.09 L Hemoglobin 8.5 L Hematocrit 26.5 L Mean Corpuscular 85.8 Volume Mean Corpuscular 27.5 L Hemoglobin Mean Corpuscular 32.1 Hemoglobin Concent Red Cell Distribution 16.7 H Width Platelet Count 153 # Mean Platelet Volume 11.3 H Immature Granulocytes 0.500 H % Neutrophils % 72.9 Lymphocytes % 15.5 Monocytes % 6.5 Eosinophils % 4.2 Basophils % 0.4 Nucleated Red Blood 0.4 H Cells % Immature Granulocytes 0.040 H # Neutrophils # 6.0 Lymphocytes # 1.3 Monocytes # 0.5 Eosinophils # 0.4 Basophils # 0.0 Nucleated Red Blood 0.0 Cells # Sodium Level 140 Potassium Level 3.4 L Chloride Level 106 Carbon Dioxide Level 24 Anion Gap 10 Blood Urea Nitrogen 5 L Creatinine 0.62 Est Glomerular > 60 Filtrat Rate mL/min Glucose Level 185 Calcium Level 8.4 Test 06/23/19 07:52 06/23/19 08:50 06/23/19 11:58 06/23/19 12:58 Bedside Glucose 206 281 H Lab Scanned Report REFERENCE LAB Vancomycin Level 14.4 Trough Exam/Review of Systems Exam Vitals Vital Signs Date Temp Pulse Resp B/P (MAP) Pulse Ox O2 O2 Flow FiO2 Time Delivery Rate 06/23/19 98.0 100 19 134/87 98 16:15 (103) 06/23/19 Room Air 14:00 06/20/19 3.0 16:15 Intake and Output 06/22/19 06/22/19 06/23/19 1515:00 23:00 07:00 IntakeIntake Total 900 ml OutputOutput Total 1350 ml 1050 ml BalanceBalance 900 ml -1350 ml -1050 ml Results Results 24hrs Laboratory Tests Test 06/22/19 17:08 06/22/19 20:39 06/23/19 02:39 06/23/19 07:44 Bedside Glucose 198 228 H 169 White Blood Count 8.3 Red Blood Count 3.09 L Hemoglobin 8.5 L Hematocrit 26.5 L Mean Corpuscular 85.8 Volume Mean Corpuscular 27.5 L Hemoglobin Mean Corpuscular 32.1 Hemoglobin Concent Red Cell Distribution 16.7 H Width Platelet Count 153 # Mean Platelet Volume 11.3 H Immature Granulocytes 0.500 H % Neutrophils % 72.9 Lymphocytes % 15.5 Monocytes % 6.5 Eosinophils % 4.2 Basophils % 0.4 Nucleated Red Blood 0.4 H Cells % Immature Granulocytes 0.040 H # Neutrophils # 6.0 Lymphocytes # 1.3 Monocytes # 0.5 Eosinophils # 0.4 Basophils # 0.0 Nucleated Red Blood 0.0 Cells # Sodium Level 140 Potassium Level 3.4 L Chloride Level 106 Carbon Dioxide Level 24 Anion Gap 10 Blood Urea Nitrogen 5 L Creatinine 0.62 Est Glomerular > 60 Filtrat Rate mL/min Glucose Level 185 Calcium Level 8.4 Test 06/23/19 07:52 06/23/19 08:50 06/23/19 11:58 06/23/19 12:58 Bedside Glucose 206 281 H Lab Scanned Report REFERENCE LAB Vancomycin Level 14.4 Trough Medications Medication Current Medications IV Flush (NS 3 ml) 3 ml PER PROTOCOL IV ; Start 06/19/19 at 12:30 Ondansetron HCl (Zofran Inj) 4 mg Q6H PRN IV NAUSEA/VOMITING; Start 06/19/19 at 12:30 Acetaminophen (Tylenol Tab) 650 mg Q6H PRN PO .PAIN 1-3 OR TEMP; Start 06/19/19 at 12:30 Acetaminophen/ Hydrocodone Bitart ([place] (5/325)) 1 tab Q6H PRN PO .MOD PAIN 4- 6; Start 06/19/19 at 12:30 Morphine Sulfate (morphine) 2 mg Q4H PRN IV .SEVERE PAIN 7-10; Start 06/19/19 at 12:30 Docusate Sodium (Colace) 100 mg Q12H PRN PO .CONSTIPATION; Start 06/19/19 at 12:30 Magnesium Hydroxide (Milk Of Mag) 30 ml DAILY PRN PO .CONSTIPATION; Start 06/19/19 at 12:30 Lorazepam (Ativan) 0.5 mg Q6H PRN IV ANXIETY Last administered on 06/23/19at 15:40; Admin Dose 0.5 MG; Start 06/19/19 at 12:30 Albuterol/ Ipratropium (Duoneb) 3 ml Q4H RESP THERAPY PRN HHN SHORTNESS OF BREATH; Start 06/19/19 at 12:30 Vancomycin HCl (Vanco Iv Per Pharmacy) VANCOMYCIN PER PHARMACY NOTE XX ; Start 06/19/19 at 12:30 Hydralazine HCl (Apresoline) 10 mg Q6H PRN IV ELEVATED BLOOD PRESSURE; Start 06/19/19 at 12:30 Nitroglycerin (Nitroglycerin (Sl Tab) 0.4 Mg) 1 tab Q5M PRN SL ANGINA; Start 06/19/19 at 12:30 Cefepime HCl 50 ml @ 100 mls/hr Q8 IVPB Last administered on 06/23/19at 15:13; Admin Dose 100 MLS/HR; Start 06/19/19 at 14:00 Sucralfate (Carafate Susp) 1 gm Q12H PRN PO CONSTIPATION; Start 06/19/19 at 15: 00 Diagnostic Test (Pha) (Accu-Chek) 1 ea 02 XX Last administered on 06/23/19at 02:39; Admin Dose 1 EA; Start 06/21/19 at 02:00 Insulin Glargine (Lantus) 16 units DAILY@0800 SC Last administered on 06/23/19 07:56; Admin Dose 16 UNITS; Start 06/21/19 at 08:00 Miscellaneous Information 1 ea NOTE XX ; Start 06/20/19 at 10:30 Glucose (Glutose) 15 gm Q15M PRN PO DECREASED GLUCOSE; Start 06/20/19 at 10:30 Glucose (Glutose) 22.5 gm Q15M PRN PO DECREASED GLUCOSE; Start 06/20/19 at 10:30 Dextrose (D50w Syringe) 25 ml Q15M PRN IV DECREASED GLUCOSE; Start 06/20/19 at 10:30 Dextrose (D50w Syringe) 50 ml Q15M PRN IV DECREASED GLUCOSE; Start 06/20/19 at 10:30 Glucagon (Glucagen) 1 mg Q15M PRN IM DECREASED GLUCOSE; Start 06/20/19 at 10:30 Glucose (Glutose) 15 gm Q15M PRN BUCCAL DECREASED GLUCOSE; Start 06/20/19 at 10:30 Vancomycin/Sodium Chloride 250 ml @ 83.333 mls/ hr Q12H IVPB Last administered on 06/23/19at 15:26; Admin Dose 83.333 MLS/HR; Start 06/21/19 at 14:00 Pantoprazole (Protonix Iv) 40 mg BID@06,18 IV Last administered on 06/23/19at 05:17; Admin Dose 40 MG; Start 06/21/19 at 18:00 Dextrose/Sodium Chloride 1,000 ml @ 75 mls/hr [id number] IV Last administered on 06/23/19 08:56; Admin Dose 75 MLS/HR; Start 06/21/19 at 09:00 Insulin Aspart (Novolog Insulin Pen) NOVOLOG *MODERATE* ALGORI... AC MEALS AND BEDTIME SC Last administered on 06/23/19 12:03; Admin Dose 8 UNIT; Start 06/22/19 at 17:25 Polyethylene Glycol (Miralax) 17 gm DAILY PO Last administered on 06/23/19at 15:13; Admin Dose 17 GM; Start 06/23/19 at 13:30 ADRI MEHTA MD Jun 23, 2019 16:24
[2019-06-23] MEDS ORDERED: POTASSIUM CHLORIDE 20 MEQ POWDER FOR ORAL SOLN PO ONE (17:00)
[2019-06-23] MEDS: METOPROLOL (XL) 25 MG TAB PO SCH (17:22)
[2019-06-23] MEDS: THIAMINE 100 MG TAB PO SCH (17:22)
[2019-06-23] MEDS ORDERED: INSULIN LISPRO 100 UNIT/ML VIAL SC SCH ×2 (17:25→21:00)
[2019-06-23] MEDS: LACTOBACILLUS RHAMNOSUS CAP PO SCH (20:28)
[2019-06-23] MEDS: BUSPIRONE 5 MG TAB PO SCH (20:28)
[2019-06-24] VITALS (9 sets, daily range): BP systolic 106–144; BP diastolic 70–96; PULSE 89–105; RESP 16–18
[2019-06-24] MEDS: ACCU-CHEK XX SCH (01:39)
[2019-06-24] MEDS: PANTOPRAZOLE 40 MG INJ IV SCH (05:22)
[2019-06-24] MEDS ORDERED: ALTEPLASE (CATHFLO) 2 MG INJ CATHETER ONE (06:00)
[2019-06-24] MEDS: INSULIN ASPART [NOVOLOG] 3 ML PEN SC SCH ×7 (09:41→21:00)
[2019-06-24] MEDS: POLYETHYLENE GLYCOL 17 GM PACKET PO SCH (09:43)
[2019-06-24] MEDS: LACTOBACILLUS RHAMNOSUS CAP PO SCH ×2 (09:43→21:59)
[2019-06-24] MEDS: THIAMINE 100 MG TAB PO SCH (09:43)
[2019-06-24] MEDS: BUSPIRONE 5 MG TAB PO SCH ×2 (09:43→21:59)
[2019-06-24] MEDS: LISINOPRIL 5 MG TAB PO SCH (09:46)
[2019-06-24] MEDS: METOPROLOL (XL) 25 MG TAB PO SCH (09:48)
[2019-06-24] MEDS: INSULIN GLARGINE [LANTus] (100 UNITS/ML) SYG SC SCH (09:48)
--- NOTE | 2019-06-24 14:24 | DS ---
Date/Time of Note Date/Time of Note DATE: 06/24/19 TIME: 14:15 Discharge Summary Admission/Discharge Info Admit Date/Time Jun 19, 2019 at 09:22 Discharge Date/Time Patient Condition: Stable Consults Dr Cooper Procedures CT brain IMPRESSION: 1. No acute intracranial pathology. 2. Densely calcified right M1 middle cerebral artery which may be chronically thrombosed. If clinically appropriate further evaluation with MRI MRA is recommended. 3. Encephalomalacia/gliosis of the right frontal and temporal operculum, the right insular cortex, right basal ganglia, caudate nucleus and linares radiata. 4. Moderate chronic microvascular white matter ischemic disease 5. Mild to moderate parenchymal volume loss. 6. Atherosclerosis. 7. Chronic left maxillary sinusitis. CAT scan abdomen pelvis IMPRESSION: 1. Tiny hiatal hernia. 2. No evidence of diverticulitis or appendicitis. 3. No calcified urinary calculi or obstructive uropathy. 4. Mild perirenal stranding consistent with previous inflammatory changes. 5. Moderate enlarged prostate gland. Correlation with PSA levels may be helpful. 6. Bilateral small inguinal hernias without herniated bowel or strangulation. 2D echo Conclusions: Normal left ventricular systolic function. Normal left ventricular cavity size. Mild concentric left ventricular hypertrophy. Ejection fraction is visually estimated at 55-60 %. Abnormal Diastolic Function. n. Normal right ventricular size. Normal right ventricular systolic function. No significant valvular stenosis or regurgitation seen. Normal pericardium with no significant pericardial effusion. EGD Esophagitis no active bleed Hx of Present Illness 64-year-old gentleman admitted from [facility]/ [facility] and care w low bp. i believe was recently hospitalized at [facility] with stroke. Hospital Course Hospital Course -- Found in shock. Hb 3.5. Coagulopathic. Transfused/ stablized, underwent EGD and found to have no active bleed. now stable for discharge. would hold off on asa/ eliquis for recent ~stroke. Encephalopathy has improved. A/P 1. Hemorrhagic shock? etio ~ Coagulopathy/ inr elevated. stable discharge to board and [facility] 2. Sirs, stable observe 3. Acute toxic metabolic encephalopathy, improved. oriented to year month today. 4. Type 2 diabetes 5. Essential hypertension 6. Metabolic syndrome 7. Recent lt-sided stroke? Follow-up on records from [facility]. no asa/ eliquis for now 8. Ftt, stable discharge to SNF/ Board and Care 9. Dysphagia continue altered diet 10. Malnutrition continue altered feeds 11. Coagulopathy due to formerly [facility] cause. Etoh liver Dz? Hepatitis? cont outpt work up 12. BPH 13. Adjustment disorder 14. Hep C? work up as outpatient. Home Meds Active Scripts Thiamine* (Vitamin B-1*) 100 Mg Tablet, 100 MG PO DAILY for 30 Days, #30 TAB Prov:ADRI MEHTA MD 06/24/19 Lactobacillus Rhamnosus GG (Culturelle) 1 Each Capsule, 1 CAP PO BID for 10 Days, CAP Prov:ADRI MEHTA MD 06/24/19 Acetaminophen* (Tylenol*) 325 Mg Tablet, 650 MG PO Q6H PRN for .PAIN 1-3 OR TEMP for 7 Days, TAB Prov:ADRI MEHTA MD 06/24/19 Lisinopril* (Lisinopril*) 5 Mg Tablet, 2.5 MG PO DAILY for 30 Days, #30 TAB Prov:ADRI MEHTA MD 06/24/19 Metoprolol Succinate* (Toprol XL*) 25 Mg Tab.sr.24h, 12.5 MG PO DAILY for 30 Days, #30 Prov:ADRI MEHTA MD 06/24/19 Sucralfate* (Carafate*) 1 Gm/10 Ml Susp, 1 GM PO DAILY for 30 Days, #30 EA Prov:ADRI MEHTA MD 06/24/19 Reported Medications Buspirone Hcl* (Buspirone Hcl*) 15 Mg Tablet, 15 MG PO BID, TAB 06/19/19 Discontinued Reported Medications Docusate Sodium (Docusil) 100 Mg Capsule, 100 MG PO BID, #60 CAP 06/19/19 Lisinopril* (Lisinopril*) 10 Mg Tablet, 10 MG PO BID, #30 TAB 06/19/19 Rivaroxaban* (Xarelto*) 15 Mg Tablet, 15 MG PO DAILY, TAB 06/19/19 Insulin Lispro (Humalog) 100 Unit/1 Ml Cartridge, SQ, EA 06/19/19 Lorazepam* (Lorazepam*) 1 Mg Tablet, 1 MG PO TID PRN for ANXIETY, #30 TAB 06/19/19 Amlodipine Besylate* (Amlodipine Besylate*) 10 Mg Tablet, 10 MG PO DAILY, #30 TAB 06/19/19 Insulin Glargine,Hum.rec.anlog (Rolanaglalyce Lestermar U-100) 100 Unit/1 Ml Insul n.pen, SC, EA 06/19/19 Labetalol Hcl* (Labetalol Hcl*) 100 Mg Tablet, 100 MG PO TID, TAB 06/19/19 Primary Care Provider Care Physician No Primary Time spent on discharge: > 30 minutes Pending Labs Laboratory Tests Test 06/23/19 17:25 06/23/19 20:30 06/24/19 01:35 06/24/19 04:44 Bedside 194 242 184 Glucose mg/dL (70-220) mg/dL (70-220) mg/dL (70-220) Ammonia < 9 umol/l (9-30) Test 06/24/19 04:45 06/24/19 09:36 06/24/19 11:55 06/24/19 13:12 White Blood 9.7 Count 10^3/ul (4.8-10 .8) Red Blood 2.98 Count 10^6/ul (4.70-6 .10) Hemoglobin 8.2 g/dl (14.0-18.0 ) Hematocrit 26.0 % (42.0-52.0) Mean 87.2 Corpuscular fl (82.0-101.0) Volume Mean 27.5 Corpuscular pg (29.0-33.0) Hemoglobin Mean 31.5 Corpuscular g/dl (32.0-37.0 Hemoglobin Conc ) ent Red Cell 16.5 Distribution % (11.5-14.5) Width Platelet Count 169 10^3/UL (140-41 5) Mean Platelet 11.4 Volume fl (7.4-10.4) Immature 0.700 Granulocytes % % (0.001-0.429) Neutrophils % 74.3 % (39.0-77.0) Lymphocytes % 14.0 % (15.0-51.0) Monocytes % 6.5 % (0.0-11.0) Eosinophils % 4.2 % (0.0-7.0) Basophils % 0.3 % (0.0-2.0) Nucleated Red 0.3 Blood Cells % /100WBC (0.0-0. 0) Immature 0.070 Granulocytes # 10^3/ul (0.0-0. 031) Neutrophils # 7.2 10^3/ul (1.6-7. 5) Lymphocytes # 1.4 10^3/ul (0.8-2. 9) Monocytes # 0.6 10^3/ul (0.3-0. 9) Eosinophils # 0.4 10^3/ul (0.0-0. 5) Basophils # 0.0 10^3/ul (0.0-0. 1) Nucleated Red 0.0 Blood Cells # 10^3/ul (0.0-0. 0) Prothrombin 15.1 Time Sec (11.9-14.9) Prothrombin 1.2 Time Ratio INR 1.18 International Normalized Rati o Sodium Level 143 mmol/L (135-144 ) Potassium 3.7 Level mmol/L (3.5-5.1 ) Chloride Level 108 mmol/L (97-110) Carbon Dioxide 27 Level mmol/L (21-31) Anion Gap 8 (5-13) Blood Urea 4 mg/dl (7-20) Nitrogen Creatinine 0.61 mg/dl (0.61-1.2 4) Est Glomerular > 60 Filtrat mL/min (>60) Rate mL/min Glucose Level 190 mg/dl (70-220) Calcium Level 8.6 mg/dl (8.4-10.2 ) Phosphorus 2.5 Level mg/dl (2.5-4.9) Magnesium 1.8 Level mg/dl (1.7-2.5) Iron Level 23 ug/dl (35-150) Total Iron 313 Binding ug/dl (241-421) Capacity Percent Iron 7 % SAT (22-52) Saturation Total 0.5 Bilirubin mg/dl (0.2-1.3) Direct 0.00 Bilirubin mg/dl (0.00-0.2 0) Indirect 0.5 Bilirubin mg/dl (0-1.1) Aspartate Amino 16 IU/L (15-46) Transf (AST/SGO T) Alanine 31 IU/L (13-69) Aminotransferas e (ALT/SGPT) Alkaline 82 Phosphatase IU/L (42-121) Total Protein 6.4 g/dl (6.1-8.1) Albumin 3.4 g/dl (3.3-4.9) Globulin 3.00 g/dl (1.3-3.2) Albumin/Globuli 1.13 n Ratio Triglycerides 109 Level mg/dl (0-149) Cholesterol 103 Level mg/dl (100-200) LDL 57 mg/dl Cholesterol, Calculated HDL 24 Cholesterol mg/dl (30-78) Cholesterol/HDL 4.2 RATIO Ratio Vitamin B12 937 Level pg/ml (239-931) Hepatitis B NEGATIVE (NEGAT Surface AYANA) Antigen Hepatitis B NEGATIVE (NEGAT Core AYANA) Total Antibody Hepatitis C REACTIVE (NEGAT Antibody AYANA) Bedside 235 154 Glucose mg/dL (70-220) mg/dL (70-220) Lab Scanned REFERENCE Report LAB [id number] ADIR MEHTA MD Jun 24, 2019 14:24
--- NOTE | 2019-06-24 14:53 | PN ---
Date/Time of Note Date/Time of Note DATE: 06/24/19 TIME: 14:41 Assessment/Plan VTE Prophylaxis Risk score (from Ns)>0 risk: 9 SCD applied (from Ns): Yes Pharmacological prophylaxis: NA/contraindicated Pharm contraindication: bleeding Lines/Catheters IV Catheter Type (from Nrsg): PICC Line Central line still needed: Yes (meds) Urinary Cath still in place: Yes Reason Cath still needed: other (indicate) (monitor output) Assessment/Plan Hospital Course Assessment: Severe anemia with reported melena- improved- no further evidence of melena S/p EGD 06/20/19: -findings of distal esophagitis Hepatitis C- AB reactive Coagulopathy- improved Lactacidosis - resolved Leukocytosis- resolved Bacteremia- repeat blood cx- neg thus far Dehydration - treated Hyperglycemia- with likely underlying DM- improved Left sided weakness -Hx of tracheostomy and PEG- based on exam CT brain - Densely calcified right M1 middle cerebral artery which may be chronically thrombosed Plan: Hepatitis C AB- reactive - RNA ordered Given significant anemia on admission and - EGD yielding limiting information- GI recommends colonoscopy prior to discharge, however this is made more difficult as patient does not have family or conservator documented. Will f/u with SW monitor H/H, transfuse as needed Patient seen in collaboration with Dr. Cooper Subjective: Patient more alert- he is not able to go back to previous [id number] as it is not license. Pt currently resting in bed. No over night events. PHYSICAL EXAMINATION: GENERAL: Awake alert and oriented, able to make needs known SKIN: No lesions HEAD: Normocephalic, atraumatic, no tenderness. EYES: Pupils equal reactive to light and accommodation, no discharge. EARS/NOSE AND THROAT: Ears normal, nose normal. NECK: Supple, no masses. CHEST: Inspection within normal limits. CARDIOVASCULAR: Heart: Regular rate and rhythm RESPIRATORY: Lungs clear to auscultation GASTROINTESTINAL AND LIVER: Abdomen: Soft, upper abdominal pain with palpation- resolved, , normoactive bowel sounds. Rectal: Deferred. EXTREMITIES: No cyanosis, clubbing or edema Result Diagram: 06/24/19 0445 06/24/195 Results 24hrs Laboratory Tests Test 06/23/19 17:25 06/23/19 20:30 06/24/19 01:35 06/24/19 04:44 Bedside Glucose 194 242 H 184 Ammonia < 9 L Test 06/24/19 04:45 06/24/19 09:36 06/24/19 11:55 06/24/19 13:12 White Blood Count 9.7 Red Blood Count 2.98 L Hemoglobin 8.2 L Hematocrit 26.0 L Mean Corpuscular 87.2 Volume Mean Corpuscular 27.5 L Hemoglobin Mean Corpuscular 31.5 L Hemoglobin Concent Red Cell Distribution 16.5 H Width Platelet Count 169 Mean Platelet Volume 11.4 H Immature Granulocytes 0.700 H % Neutrophils % 74.3 Lymphocytes % 14.0 L Monocytes % 6.5 Eosinophils % 4.2 Basophils % 0.3 Nucleated Red Blood 0.3 H Cells % Immature Granulocytes 0.070 H # Neutrophils # 7.2 Lymphocytes # 1.4 Monocytes # 0.6 Eosinophils # 0.4 Basophils # 0.0 Nucleated Red Blood 0.0 Cells # Prothrombin Time 15.1 H Prothrombin Time 1.2 Ratio INR International 1.18 Normalized Ratio Sodium Level 143 Potassium Level 3.7 Chloride Level 108 Carbon Dioxide Level 27 Anion Gap 8 Blood Urea Nitrogen 4 L Creatinine 0.61 Est Glomerular > 60 Filtrat Rate mL/min Glucose Level 190 Calcium Level 8.6 Phosphorus Level 2.5 Magnesium Level 1.8 Iron Level 23 L Total Iron Binding 313 Capacity Percent Iron 7 L Saturation Total Bilirubin 0.5 Direct Bilirubin 0.00 Indirect Bilirubin 0.5 Aspartate Amino 16 Transf (AST/SGOT) Alanine 31 Aminotransferase (ALT /SGPT) Alkaline Phosphatase 82 Total Protein 6.4 Albumin 3.4 Globulin 3.00 Albumin/Globulin 1.13 Ratio Triglycerides Level 109 Cholesterol Level 103 LDL Cholesterol, 57 Calculated HDL Cholesterol 24 L Cholesterol/HDL Ratio 4.2 Vitamin B12 Level 937 H Hepatitis B Surface NEGATIVE Antigen Hepatitis B Core NEGATIVE Total Antibody Hepatitis C Antibody REACTIVE H Bedside Glucose 235 H 154 Lab Scanned Report REFERENCE LAB Exam/Review of Systems Exam Vitals Vital Signs Date Temp Pulse Resp B/P (MAP) Pulse Ox O2 O2 Flow FiO2 Time Delivery Rate 06/24/19 98.0 91 18 126/72 98 Room Air 14:00 (90) 06/20/19 3.0 16:15 Intake and Output 06/23/19 06/23/19 06/24/19 1515:00 23:00 07:00 IntakeIntake Total 1510 ml OutputOutput Total 2050 ml 700 ml BalanceBalance -540 ml -700 ml Results Results 24hrs Laboratory Tests Test 06/23/19 17:25 06/23/19 20:30 06/24/19 01:35 06/24/19 04:44 Bedside Glucose 194 242 H 184 Ammonia < 9 L Test 06/24/19 04:45 06/24/19 09:36 06/24/19 11:55 06/24/19 13:12 White Blood Count 9.7 Red Blood Count 2.98 L Hemoglobin 8.2 L Hematocrit 26.0 L Mean Corpuscular 87.2 Volume Mean Corpuscular 27.5 L Hemoglobin Mean Corpuscular 31.5 L Hemoglobin Concent Red Cell Distribution 16.5 H Width Platelet Count 169 Mean Platelet Volume 11.4 H Immature Granulocytes 0.700 H % Neutrophils % 74.3 Lymphocytes % 14.0 L Monocytes % 6.5 Eosinophils % 4.2 Basophils % 0.3 Nucleated Red Blood 0.3 H Cells % Immature Granulocytes 0.070 H # Neutrophils # 7.2 Lymphocytes # 1.4 Monocytes # 0.6 Eosinophils # 0.4 Basophils # 0.0 Nucleated Red Blood 0.0 Cells # Prothrombin Time 15.1 H Prothrombin Time 1.2 Ratio INR International 1.18 Normalized Ratio Sodium Level 143 Potassium Level 3.7 Chloride Level 108 Carbon Dioxide Level 27 Anion Gap 8 Blood Urea Nitrogen 4 L Creatinine 0.61 Est Glomerular > 60 Filtrat Rate mL/min Glucose Level 190 Calcium Level 8.6 Phosphorus Level 2.5 Magnesium Level 1.8 Iron Level 23 L Total Iron Binding 313 Capacity Percent Iron 7 L Saturation Total Bilirubin 0.5 Direct Bilirubin 0.00 Indirect Bilirubin 0.5 Aspartate Amino 16 Transf (AST/SGOT) Alanine 31 Aminotransferase (ALT /SGPT) Alkaline Phosphatase 82 Total Protein 6.4 Albumin 3.4 Globulin 3.00 Albumin/Globulin 1.13 Ratio Triglycerides Level 109 Cholesterol Level 103 LDL Cholesterol, 57 Calculated HDL Cholesterol 24 L Cholesterol/HDL Ratio 4.2 Vitamin B12 Level 937 H Hepatitis B Surface NEGATIVE Antigen Hepatitis B Core NEGATIVE Total Antibody Hepatitis C Antibody REACTIVE H Bedside Glucose 235 H 154 Lab Scanned Report REFERENCE LAB Medications Medication Current Medications IV Flush (NS 3 ml) 3 ml PER PROTOCOL IV ; Start 06/19/19 at 12:30 Ondansetron HCl (Zofran Inj) 4 mg Q6H PRN IV NAUSEA/VOMITING; Start 06/19/19 at 12:30 Acetaminophen (Tylenol Tab) 650 mg Q6H PRN PO .PAIN 1-3 OR TEMP; Start 06/19/19 at 12:30 Acetaminophen/ Hydrocodone Bitart ([place] (5/325)) 1 tab Q6H PRN PO .MOD PAIN 4- 6; Start 06/19/19 at 12:30 Morphine Sulfate (morphine) 2 mg Q4H PRN IV .SEVERE PAIN 7-10; Start 06/19/19 at 12:30 Docusate Sodium (Colace) 100 mg Q12H PRN PO .CONSTIPATION; Start 06/19/19 at 12:30 Magnesium Hydroxide (Milk Of Mag) 30 ml DAILY PRN PO .CONSTIPATION; Start 06/19/19 at 12:30 Lorazepam (Ativan) 0.5 mg Q6H PRN IV ANXIETY Last administered on 06/23/19at 15:40; Admin Dose 0.5 MG; Start 06/19/19 at 12:30 Albuterol/ Ipratropium (Duoneb) 3 ml Q4H RESP THERAPY PRN HHN SHORTNESS OF BREATH; Start 06/19/19 at 12:30 Hydralazine HCl (Apresoline) 10 mg Q6H PRN IV ELEVATED BLOOD PRESSURE; Start 06/19/19 at 12:30 Nitroglycerin (Nitroglycerin (Sl Tab) 0.4 Mg) 1 tab Q5M PRN SL ANGINA; Start 06/19/19 at 12:30 Sucralfate (Carafate Susp) 1 gm Q12H PRN PO CONSTIPATION; Start 06/19/19 at 15:00 Diagnostic Test (Pha) (Accu-Chek) 1 ea 02 XX Last administered on 06/23/19at 02:39; Admin Dose 1 EA; Start 06/21/19 at 02:00 Insulin Glargine (Lantus) 16 units DAILY@0800 SC Last administered on 06/24/19at 09:48; Admin Dose 16 UNITS; Start 06/21/19 at 08:00 Miscellaneous Information 1 ea NOTE XX ; Start 06/20/19 at 10:30 Glucose (Glutose) 15 gm Q15M PRN PO DECREASED GLUCOSE; Start 06/20/19 at 10:30 Glucose (Glutose) 22.5 gm Q15M PRN PO DECREASED GLUCOSE; Start 06/20/19 at 10:30 Dextrose (D50w Syringe) 25 ml Q15M PRN IV DECREASED GLUCOSE; Start 06/20/19 at 10:30 Dextrose (D50w Syringe) 50 ml Q15M PRN IV DECREASED GLUCOSE; Start 06/20/19 at 10:30 Glucagon (Glucagen) 1 mg Q15M PRN IM DECREASED GLUCOSE; Start 06/20/19 at 10:30 Glucose (Glutose) 15 gm Q15M PRN BUCCAL DECREASED GLUCOSE; Start 06/20/19 at 10:30 Insulin Aspart (Novolog Insulin Pen) NOVOLOG *MODERATE* ALGORI... AC MEALS AND BEDTIME SC Last administered on 06/24/19 13:15; Admin Dose 2 UNIT; Start 06/22/19 at 17:25 Thiamine HCl (Vitamin B1) 100 mg DAILY PO Last administered on 06/24/19 09:43; Admin Dose 100 MG; Start 06/23/19 at 16:30 Lactobacillus Acidophilus/ Rhamnosus (Culturelle) 1 cap BID PO Last administered on 06/24/19 09:43; Admin Dose 1 CAP; Start 06/23/19 at 21:00 Metoprolol Succinate (Toprol Xl) 12.5 mg DAILY PO Last administered on 06/24/19 09:48; Admin Dose 12.5 MG; Start 06/23/19 at 16:30 Lisinopril (Zestril) 2.5 mg DAILY PO Last administered on 06/24/19 09:46; Admin Dose 2.5 MG; Start 06/24/19 at 09:00 Buspirone HCl (Buspar) 15 mg BID PO Last administered on 06/24/19 09:43; Admin Dose 15 MG; Start 06/23/19 at 21:00 Insulin Aspart (Novolog Insulin Pen) 4 unit AC MEALS SC Last administered on 06/24/19 13:15; Admin Dose 4 UNIT; Start 06/23/19 at 17:25 Pantoprazole (Protonix Tab) 40 mg BID@06,18 PO ; Start 06/24/19 at 18:00 DAIANA HERNANDEZ Jun 24, 2019 14:52
[2019-06-24] MEDS: PANTOPRAZOLE (EC) 40 MG TAB PO SCH (17:09)
[2019-06-25] MEDS: ACCU-CHEK XX SCH (02:00)
[2019-06-25 02:32] VITALS: BP 129/74; PULSE 92; RESP 18
[2019-06-25] MEDS: DOCUSATE SODIUM 100 MG CAP PO PRN (05:12)
[2019-06-25] MEDS: PANTOPRAZOLE (EC) 40 MG TAB PO SCH ×2 (05:12→17:40)
[2019-06-25 07:47] VITALS: BP 148/87; PULSE 87; RESP 16
[2019-06-25] MEDS: LACTOBACILLUS RHAMNOSUS CAP PO SCH ×2 (08:36→20:38)
[2019-06-25] MEDS: THIAMINE 100 MG TAB PO SCH (08:36)
[2019-06-25] MEDS: LISINOPRIL 5 MG TAB PO SCH (08:37)
[2019-06-25] MEDS: METOPROLOL (XL) 25 MG TAB PO SCH (08:38)
[2019-06-25] MEDS: BUSPIRONE 5 MG TAB PO SCH ×2 (08:39→20:39)
[2019-06-25] MEDS: INSULIN ASPART [NOVOLOG] 3 ML PEN SC SCH ×7 (08:40→20:46)
[2019-06-25] MEDS: INSULIN GLARGINE [LANTus] (100 UNITS/ML) SYG SC SCH (08:41)
--- NOTE | 2019-06-25 10:54 | PN ---
Date/Time of Note Date/Time of Note DATE: 06/25/19 TIME: 10:51 Assessment/Plan VTE Prophylaxis Risk score (from Ns)>0 risk: 8 SCD applied (from Ns): Yes Pharmacological prophylaxis: NA/contraindicated Pharm contraindication: bleeding Lines/Catheters IV Catheter Type (from Nrsg): PICC Line Central line still needed: Yes (meds) Urinary Cath still in place: Yes Reason Cath still needed: other (indicate) (monitor output) Assessment/Plan Hospital Course Assessment: Severe anemia with reported melena- improved- no further evidence of melena S/p EGD 06/20/19: -findings of distal esophagitis Hepatitis C- AB reactive Coagulopathy- improved Lactacidosis - resolved Leukocytosis- resolved Bacteremia- repeat blood cx- neg thus far Dehydration - treated Hyperglycemia- with likely underlying DM- improved Left sided weakness -Hx of tracheostomy and PEG- based on exam CT brain - Densely calcified right M1 middle cerebral artery which may be chronically thrombosed Plan: Hepatitis C AB- reactive - RNA pending Given significant anemia on admission and - EGD yielding limiting information- GI recommends colonoscopy prior to discharge, however this is made more difficult as patient does not have family or conservator documented monitor H/H, transfuse as needed Patient seen in collaboration with Dr. Cooper Subjective: Patient more alert now oriented to name, place, event, forgetful to time. he is not able to go back to previous [id number] as it is not license. Pt currently resting in bed. No over night events. PHYSICAL EXAMINATION: GENERAL: Awake alert and oriented, able to make needs known SKIN: No lesions HEAD: Normocephalic, atraumatic, no tenderness. EYES: Pupils equal reactive to light and accommodation, no discharge. EARS/NOSE AND THROAT: Ears normal, nose normal. NECK: Supple, no masses. CHEST: Inspection within normal limits. CARDIOVASCULAR: Heart: Regular rate and rhythm RESPIRATORY: Lungs clear to auscultation GASTROINTESTINAL AND LIVER: Abdomen: Soft, upper abdominal pain with palpation- resolved, , normoactive bowel sounds. Rectal: Deferred. EXTREMITIES: No cyanosis, clubbing or edema Result Diagram: 06/25/19 0436 06/25/19 0436 Results 24hrs Laboratory Tests Test 06/24/19 11:55 06/24/19 13:12 06/24/19 17:04 06/24/19 21:55 Lab Scanned Report REFERENCE LAB Bedside Glucose 154 109 152 Test 06/25/19 04:36 06/25/19 08:29 White Blood Count 8.5 Red Blood Count 3.11 L Hemoglobin 8.3 L Hematocrit 27.4 L Mean Corpuscular 88.1 Volume Mean Corpuscular 26.7 L Hemoglobin Mean Corpuscular 30.3 L Hemoglobin Concent Red Cell Distribution 16.5 H Width Platelet Count 206 # Mean Platelet Volume 11.2 H Immature Granulocytes 0.500 H % Neutrophils % 71.7 Lymphocytes % 15.8 Monocytes % 6.8 Eosinophils % 4.8 Basophils % 0.4 Nucleated Red Blood 0.2 H Cells % Immature Granulocytes 0.040 H # Neutrophils # 6.1 Lymphocytes # 1.4 Monocytes # 0.6 Eosinophils # 0.4 Basophils # 0.0 Nucleated Red Blood 0.0 Cells # Sodium Level 140 Potassium Level 3.4 L Chloride Level 104 Carbon Dioxide Level 30 Anion Gap 6 Blood Urea Nitrogen 5 L Creatinine 0.67 Est Glomerular > 60 Filtrat Rate mL/min Glucose Level 188 Calcium Level 8.9 Bedside Glucose 193 Exam/Review of Systems Exam Vitals Vital Signs Date Temp Pulse Resp B/P (MAP) Pulse Ox O2 O2 Flow FiO2 Time Delivery Rate 06/25/19 97.9 87 16 148/87 98 07:47 (107) 06/24/19 Room Air 14:00 Intake and Output 06/24/19 06/24/19 06/25/19 1515:00 23:00 07:00 IntakeIntake Total 200 ml 300 ml 490 ml OutputOutput Total 900 ml 1500 ml BalanceBalance 200 ml -600 ml -1010 ml Results Results 24hrs Laboratory Tests Test 06/24/19 11:55 06/24/19 13:12 06/24/19 17:04 06/24/19 21:55 Lab Scanned Report REFERENCE LAB Bedside Glucose 154 109 152 Test 06/25/19 04:36 06/25/19 08:29 White Blood Count 8.5 Red Blood Count 3.11 L Hemoglobin 8.3 L Hematocrit 27.4 L Mean Corpuscular 88.1 Volume Mean Corpuscular 26.7 L Hemoglobin Mean Corpuscular 30.3 L Hemoglobin Concent Red Cell Distribution 16.5 H Width Platelet Count 206 # Mean Platelet Volume 11.2 H Immature Granulocytes 0.500 H % Neutrophils % 71.7 Lymphocytes % 15.8 Monocytes % 6.8 Eosinophils % 4.8 Basophils % 0.4 Nucleated Red Blood 0.2 H Cells % Immature Granulocytes 0.040 H # Neutrophils # 6.1 Lymphocytes # 1.4 Monocytes # 0.6 Eosinophils # 0.4 Basophils # 0.0 Nucleated Red Blood 0.0 Cells # Sodium Level 140 Potassium Level 3.4 L Chloride Level 104 Carbon Dioxide Level 30 Anion Gap 6 Blood Urea Nitrogen 5 L Creatinine 0.67 Est Glomerular > 60 Filtrat Rate mL/min Glucose Level 188 Calcium Level 8.9 Bedside Glucose 193 Medications Medication Current Medications IV Flush (NS 3 ml) 3 ml PER PROTOCOL IV ; Start 06/19/19 at 12:30 Ondansetron HCl (Zofran Inj) 4 mg Q6H PRN IV NAUSEA/VOMITING; Start 06/19/19 at 12:30 Acetaminophen (Tylenol Tab) 650 mg Q6H PRN PO .PAIN 1-3 OR TEMP Last administered on 06/24/19at 16:14; Admin Dose 650 MG; Start 06/19/19 at 12:30 Acetaminophen/ Hydrocodone Bitart ([place] (5/325)) 1 tab Q6H PRN PO .MOD PAIN 4- 6; Start 06/19/19 at 12:30 Morphine Sulfate (morphine) 2 mg Q4H PRN IV .SEVERE PAIN 7-10; Start 06/19/19 at 12:30 Docusate Sodium (Colace) 100 mg Q12H PRN PO .CONSTIPATION Last administered on 06/25/19at 05:12; Admin Dose 100 MG; Start 06/19/19 at 12:30 Magnesium Hydroxide (Milk Of Mag) 30 ml DAILY PRN PO .CONSTIPATION; Start 06/19/19 at 12:30 Lorazepam (Ativan) 0.5 mg Q6H PRN IV ANXIETY Last administered on 06/23/19at 15:40; Admin Dose 0.5 MG; Start 06/19/19 at 12:30 Albuterol/ Ipratropium (Duoneb) 3 ml Q4H RESP THERAPY PRN HHN SHORTNESS OF BREATH; Start 06/19/19 at 12:30 Hydralazine HCl (Apresoline) 10 mg Q6H PRN IV ELEVATED BLOOD PRESSURE; Start 06/19/19 at 12:30 Nitroglycerin (Nitroglycerin (Sl Tab) 0.4 Mg) 1 tab Q5M PRN SL ANGINA; Start 06/19/19 at 12:30 Sucralfate (Carafate Susp) 1 gm Q12H PRN PO CONSTIPATION; Start 06/19/19 at 15:00 Diagnostic Test (Pha) (Accu-Chek) 1 ea 02 XX Last administered on 06/23/19at 02:39; Admin Dose 1 EA; Start 06/21/19 at 02:00 Insulin Glargine (Lantus) 16 units DAILY@0800 SC Last administered on 06/25/19at 08:41; Admin Dose 16 UNITS; Start 06/21/19 at 08:00 Miscellaneous Information 1 ea NOTE XX ; Start 06/20/19 at 10:30 Glucose (Glutose) 15 gm Q15M PRN PO DECREASED GLUCOSE; Start 06/20/19 at 10:30 Glucose (Glutose) 22.5 gm Q15M PRN PO DECREASED GLUCOSE; Start 06/20/19 at 10:30 Dextrose (D50w Syringe) 25 ml Q15M PRN IV DECREASED GLUCOSE; Start 06/20/19 at 10:30 Dextrose (D50w Syringe) 50 ml Q15M PRN IV DECREASED GLUCOSE; Start 06/20/19 at 10:30 Glucagon (Glucagen) 1 mg Q15M PRN IM DECREASED GLUCOSE; Start 06/20/19 at 10:30 Glucose (Glutose) 15 gm Q15M PRN BUCCAL DECREASED GLUCOSE; Start 06/20/19 at 10:30 Insulin Aspart (Novolog Insulin Pen) NOVOLOG *MODERATE* ALGORI... AC MEALS AND BEDTIME SC Last administered on 06/25/19at 08:40; Admin Dose 4 UNIT; Start 06/22/19 at 17:25 Thiamine HCl (Vitamin B1) 100 mg DAILY PO Last administered on 06/25/19 08:36; Admin Dose 100 MG; Start 06/23/19 at 16:30 Lactobacillus Acidophilus/ Rhamnosus (Culturelle) 1 cap BID PO Last administered on 06/25/19at 08:36; Admin Dose 1 CAP; Start 06/23/19 at 21:00 Metoprolol Succinate (Toprol Xl) 12.5 mg DAILY PO Last administered on 06/25/19at 08:38; Admin Dose 12.5 MG; Start 06/23/19 at 16:30 Lisinopril (Zestril) 2.5 mg DAILY PO Last administered on 06/25/19at 08:37; Admin Dose 2.5 MG; Start 06/24/19 at 09:00 Buspirone HCl (Buspar) 15 mg BID PO Last administered on 06/25/19at 08:39; Admin Dose 15 MG; Start 06/23/19 at 21:00 Insulin Aspart (Novolog Insulin Pen) 4 unit AC MEALS SC Last administered on 06/25/19at 08:41; Admin Dose 4 UNIT; Start 06/23/19 at 17:25 Pantoprazole (Protonix Tab) 40 mg BID@06,18 PO Last administered on 06/25/19at 05:12; Admin Dose 40 MG; Start 06/24/19 at 18:00 DAIANA HERNANDEZ Jun 25, 2019 10:54
--- NOTE | 2019-06-25 11:01 | DS ---
Date/Time of Note Date/Time of Note DATE: 06/25/19 TIME: 10:59 Discharge Summary Admission/Discharge Info Admit Date/Time Jun 19, 2019 at 09:22 Discharge Date/Time Patient Condition: Stable Consults Dr Cooper Procedures EGD labs Hx of Present Illness 64-year-old gentleman admitted from snf/ board and care w low bp. i believe was recently hospitalized at [facility] with stroke. Hospital Course Hospital Course -- Found in shock. Hb 3.5 & Coagulopathic/ elevated INR. Transfused/ stablized, underwent EGD and found to have no active bleed. now stable for discharge. Refused colonoscopy. would hold off on asa/ eliquis [for recent ~stroke] due to signficant anemia. Encephalopathy improved. A/P 1. Hemorrhagic shock? etio ~ Coagulopathy/ inr elevated. Stable DC to board and care 2. Sirs, stable observe 3. Acute toxic metabolic encephalopathy, improved. oriented to year month today. 4. Type 2 diabetes 5. Essential hypertension 6. Metabolic syndrome 7. Recent lt-sided stroke? Follow-up on records from [facility]. no asa/ eliquis for now 8. Ftt, stable discharge to SNF/ Board and Care 9. Dysphagia continue altered diet 10. Malnutrition continue altered feeds 11. Coagulopathy due to ukn cause. Etoh liver Dz? Hepatitis? cont outpt work up 12. BPH 13. Adjustment disorder 14. Hep C? work up as outpatient. 15. Anemia/ ABL; outpt colonoscopy Home Meds Active Scripts Thiamine* (Vitamin B-1*) 100 Mg Tablet, 100 MG PO DAILY for 30 Days, #30 TAB Prov:ADRI MEHTA MD 06/24/19 Lactobacillus Rhamnosus GG (Culturelle) 1 Each Capsule, 1 CAP PO BID for 10 Days, CAP Prov:ADRI MEHTA MD 06/24/19 Acetaminophen* (Tylenol*) 325 Mg Tablet, 650 MG PO Q6H PRN for .PAIN 1-3 OR TEMP for 7 Days, TAB Prov:ADRI MEHTA MD 06/24/19 Lisinopril* (Lisinopril*) 5 Mg Tablet, 2.5 MG PO DAILY for 30 Days, #30 TAB Prov:ADRI MEHTA MD 06/24/19 Metoprolol Succinate* (Toprol XL*) 25 Mg Tab.sr.24h, 12.5 MG PO DAILY for 30 Days, #30 Prov:ADRI MEHTA MD 06/24/19 Sucralfate* (Carafate*) 1 Gm/10 Ml Susp, 1 GM PO DAILY for 30 Days, #30 EA Prov:ADRI MEHTA MD 06/24/19 Reported Medications Buspirone Hcl* (Buspirone Hcl*) 15 Mg Tablet, 15 MG PO BID, TAB 06/19/19 Discontinued Reported Medications Docusate Sodium (Docusil) 100 Mg Capsule, 100 MG PO BID, #60 CAP 06/19/19 Lisinopril* (Lisinopril*) 10 Mg Tablet, 10 MG PO BID, #30 TAB 06/19/19 Rivaroxaban* (Xarelto*) 15 Mg Tablet, 15 MG PO DAILY, TAB 06/19/19 Insulin Lispro (Humalog) 100 Unit/1 Ml Cartridge, SQ, EA 06/19/19 Lorazepam* (Lorazepam*) 1 Mg Tablet, 1 MG PO TID PRN for ANXIETY, #30 TAB 06/19/19 Amlodipine Besylate* (Amlodipine Besylate*) 10 Mg Tablet, 10 MG PO DAILY, #30 TAB 06/19/19 Insulin Glargine,Hum.rec.anlog (Basaglar Kwikpen U-100) 100 Unit/1 Ml Insuln. pen, SC, EA 06/19/19 Labetalol Hcl* (Labetalol Hcl*) 100 Mg Tablet, 100 MG PO TID, TAB 06/19/19 Primary Care Provider Care Physician No Primary Time spent on discharge: < 30 minutes Pending Labs Laboratory Tests Test 06/24/19 11:55 06/24/19 13:12 06/24/19 17:04 06/24/19 21:55 Lab Scanned REFERENCE Report LAB [id number] Bedside 154 109 152 Glucose mg/dL (70-220) mg/dL (70-220) mg/dL (70-220) Test 06/25/19 04:36 06/25/19 08:29 White Blood 8.5 Count 10^3/ul (4.8-10 .8) Red Blood 3.11 Count 10^6/ul (4.70-6 .10) Hemoglobin 8.3 g/dl (14.0-18.0 ) Hematocrit 27.4 % (42.0-52.0) Mean 88.1 Corpuscular fl (82.0-101.0) Volume Mean 26.7 Corpuscular pg (29.0-33.0) Hemoglobin Mean 30.3 Corpuscular g/dl (32.0-37.0 Hemoglobin Conc ) ent Red Cell 16.5 Distribution % (11.5-14.5) Width Platelet Count 206 10^3/UL (140-41 5) Mean Platelet 11.2 Volume fl (7.4-10.4) Immature 0.500 Granulocytes % % (0.001-0.429) Neutrophils % 71.7 % (39.0-77.0) Lymphocytes % 15.8 % (15.0-51.0) Monocytes % 6.8 % (0.0-11.0) Eosinophils % 4.8 % (0.0-7.0) Basophils % 0.4 % (0.0-2.0) Nucleated Red 0.2 Blood Cells % /100WBC (0.0-0. 0) Immature 0.040 Granulocytes # 10^3/ul (0.0-0. 031) Neutrophils # 6.1 10^3/ul (1.6-7. 5) Lymphocytes # 1.4 10^3/ul (0.8-2. 9) Monocytes # 0.6 10^3/ul (0.3-0. 9) Eosinophils # 0.4 10^3/ul (0.0-0. 5) Basophils # 0.0 10^3/ul (0.0-0. 1) Nucleated Red 0.0 Blood Cells # 10^3/ul (0.0-0. 0) Sodium Level 140 mmol/L (135-144 ) Potassium 3.4 Level mmol/L (3.5-5.1 ) Chloride Level 104 mmol/L (97-110) Carbon Dioxide 30 Level mmol/L (21-31) Anion Gap 6 (5-13) Blood Urea 5 mg/dl (7-20) Nitrogen Creatinine 0.67 mg/dl (0.61-1.2 4) Est Glomerular > 60 Filtrat mL/min (>60) Rate mL/min Glucose Level 188 mg/dl (70-220) Calcium Level 8.9 mg/dl (8.4-10.2 ) Bedside 193 Glucose mg/dL (70-220) ADRI MEHTA MD Jun 25, 2019 11:01
[2019-06-25 14:00] VITALS: BP 124/69; PULSE 94; RESP 18
--- NOTE | 2019-06-25 14:11 | PDOCDIS ---
Discharge Instructions CONDITION [id number] Patient Condition: [id number] Stable HOME CARE INSTRUCTIONS: [id number] Diet Instructions: [id number] dysphagia altered ACTIVITY: [id number] Activity Restrictions: [id number] Slowly Increase Activity Do not Drive FOLLOW UP/APPOINTMENTS Follow-up Plan appt Primary 1wk. LONI Cooper 2wks. ADRI MEHTA MD Jun 25, 2019 14:11
[2019-06-25 21:30] VITALS: BP 169/91; PULSE 96; RESP 18
[2019-06-26] MEDS: ACCU-CHEK XX SCH (02:00)
[2019-06-26 02:37] VITALS: BP 147/83; PULSE 94; RESP 18
[2019-06-26] MEDS: PANTOPRAZOLE (EC) 40 MG TAB PO SCH ×2 (05:20→17:19)
[2019-06-26 08:19] VITALS: BP 134/84; PULSE 84
[2019-06-26] MEDS: METOPROLOL (XL) 25 MG TAB PO SCH (08:39)
[2019-06-26] MEDS: BUSPIRONE 5 MG TAB PO SCH ×2 (08:39→20:34)
[2019-06-26] MEDS: LACTOBACILLUS RHAMNOSUS CAP PO SCH ×2 (08:39→20:34)
[2019-06-26] MEDS: THIAMINE 100 MG TAB PO SCH (08:40)
[2019-06-26] MEDS: LISINOPRIL 5 MG TAB PO SCH (08:40)
[2019-06-26] MEDS: INSULIN ASPART [NOVOLOG] 3 ML PEN SC SCH ×7 (08:43→20:34)
[2019-06-26] MEDS: INSULIN GLARGINE [LANTus] (100 UNITS/ML) SYG SC SCH (08:47)
--- NOTE | 2019-06-26 11:39 | PN ---
Date/Time of Note Date/Time of Note DATE: 06/26/19 TIME: 11:36 Assessment/Plan VTE Prophylaxis Risk score (from Ns)>0 risk: 2 SCD applied (from Ns): No SCD contraindicated: low risk/ambulating Pharmacological prophylaxis: NA/contraindicated Pharm contraindication: bleeding Lines/Catheters IV Catheter Type (from Nrs): PICC Line Central line still needed: Yes (meds) Urinary Cath still in place: Yes Reason Cath still needed: other (indicate) (monitor out-put ) Assessment/Plan Hospital Course Assessment: Severe anemia with reported melena- improved- no further evidence of melena S/p EGD 06/20/19: -findings of distal esophagitis Hepatitis C- AB reactive- RNA - not detected Coagulopathy- improved Lactacidosis - resolved Leukocytosis- resolved Bacteremia- repeat blood cx- neg thus far Dehydration - treated Hyperglycemia- with likely underlying DM- improved Left sided weakness -Hx of tracheostomy and PEG- based on exam CT brain - Densely calcified right M1 middle cerebral artery which may be chronically thrombosed Plan: Hepatitis C AB- reactive - RNA pending Given significant anemia on admission and - EGD yielding limiting information- GI recommends colonoscopy prior to discharge, however this is made more difficult as patient does not have family or conservator documented. HGB now stable, no overt signs of GI bleed. Pt to f/u with GI after d/c. monitor H/H, transfuse as needed Patient seen in collaboration with Dr. Cooper Subjective: No over night events no overt signs of GI bleed. HGB stable. Patient denies n/v or abdominal pain. PHYSICAL EXAMINATION: GENERAL: Awake alert and oriented, able to make needs known SKIN: No lesions HEAD: Normocephalic, atraumatic, no tenderness. EYES: Pupils equal reactive to light and accommodation, no discharge. EARS/NOSE AND THROAT: Ears normal, nose normal. NECK: Supple, no masses. CHEST: Inspection within normal limits. CARDIOVASCULAR: Heart: Regular rate and rhythm RESPIRATORY: Lungs clear to auscultation GASTROINTESTINAL AND LIVER: Abdomen: Soft, upper abdominal pain with palpation- resolved, , normoactive bowel sounds. Rectal: Deferred. EXTREMITIES: No cyanosis, clubbing or edema Result Diagram: 06/26/19 0426 06/26/19 0426 Results 24hrs Laboratory Tests Test 06/25/19 12:49 06/25/19 17:38 06/25/19 20:33 06/26/19 02:20 Bedside Glucose 176 164 174 184 Test 06/26/19 04:26 06/26/19 08:37 White Blood Count 11.0 #H Red Blood Count 3.17 L Hemoglobin 8.6 L Hematocrit 27.6 L Mean Corpuscular Volume 87.1 Mean Corpuscular 27.1 L Hemoglobin Mean Corpuscular 31.2 L Hemoglobin Concent Red Cell Distribution 15.9 H Width Platelet Count 264 # Mean Platelet Volume 11.3 H Immature Granulocytes % 0.500 H Neutrophils % 77.1 H Lymphocytes % 12.9 L Monocytes % 6.2 Eosinophils % 2.9 Basophils % 0.4 Nucleated Red Blood 0.3 H Cells % Immature Granulocytes # 0.050 H Neutrophils # 8.5 H Lymphocytes # 1.4 Monocytes # 0.7 Eosinophils # 0.3 Basophils # 0.0 Nucleated Red Blood 0.0 Cells # Sodium Level 139 Potassium Level 3.2 L Chloride Level 102 Carbon Dioxide Level 32 H Anion Gap 5 Blood Urea Nitrogen 8 Creatinine 0.66 Est Glomerular Filtrat > 60 Rate mL/min Glucose Level 172 Calcium Level 8.9 Bedside Glucose 203 Exam/Review of Systems Exam Vitals Vital Signs Date Temp Pulse Resp B/P (MAP) Pulse Ox O2 O2 Flow FiO2 Time Delivery Rate 06/26/19 98.3 84 134/84 Room Air 08:19 (101) 06/26/19 18 98 02:37 Intake and Output 06/25/19 06/25/19 06/26/19 1515:00 23:00 07:00 IntakeIntake Total 600 ml 200 ml OutputOutput Total 1800 ml BalanceBalance 600 ml -1600 ml Results Results 24hrs Laboratory Tests Test 06/25/19 12:49 06/25/19 17:38 06/25/19 20:33 06/26/19 02:20 Bedside Glucose 176 164 174 184 Test 06/26/19 04:26 06/26/19 08:37 White Blood Count 11.0 #H Red Blood Count 3.17 L Hemoglobin 8.6 L Hematocrit 27.6 L Mean Corpuscular Volume 87.1 Mean Corpuscular 27.1 L Hemoglobin Mean Corpuscular 31.2 L Hemoglobin Concent Red Cell Distribution 15.9 H Width Platelet Count 264 # Mean Platelet Volume 11.3 H Immature Granulocytes % 0.500 H Neutrophils % 77.1 H Lymphocytes % 12.9 L Monocytes % 6.2 Eosinophils % 2.9 Basophils % 0.4 Nucleated Red Blood 0.3 H Cells % Immature Granulocytes # 0.050 H Neutrophils # 8.5 H Lymphocytes # 1.4 Monocytes # 0.7 Eosinophils # 0.3 Basophils # 0.0 Nucleated Red Blood 0.0 Cells # Sodium Level 139 Potassium Level 3.2 L Chloride Level 102 Carbon Dioxide Level 32 H Anion Gap 5 Blood Urea Nitrogen 8 Creatinine 0.66 Est Glomerular Filtrat > 60 Rate mL/min Glucose Level 172 Calcium Level 8.9 Bedside Glucose 203 Medications Medication Current Medications IV Flush (NS 3 ml) 3 ml PER PROTOCOL IV ; Start 06/19/19 at 12:30 Ondansetron HCl (Zofran Inj) 4 mg Q6H PRN IV NAUSEA/VOMITING; Start 06/19/19 at 12:30 Acetaminophen (Tylenol Tab) 650 mg Q6H PRN PO .PAIN 1-3 OR TEMP Last administered on 06/24/19at 16:14; Admin Dose 650 MG; Start 06/19/19 at 12:30 Acetaminophen/ Hydrocodone Bitart ([place] (5/325)) 1 tab Q6H PRN PO .MOD PAIN 4- 6; Start 06/19/19 at 12:30 Morphine Sulfate (morphine) 2 mg Q4H PRN IV .SEVERE PAIN 7-10; Start 06/19/19 at 12:30 Docusate Sodium (Colace) 100 mg Q12H PRN PO .CONSTIPATION Last administered on 06/25/19at 05:12; Admin Dose 100 MG; Start 06/19/19 at 12:30 Magnesium Hydroxide (Milk Of Mag) 30 ml DAILY PRN PO .CONSTIPATION; Start 06/19/19 at 12:30 Lorazepam (Ativan) 0.5 mg Q6H PRN IV ANXIETY Last administered on 06/23/19at 15:40; Admin Dose 0.5 MG; Start 06/19/19 at 12:30 Albuterol/ Ipratropium (Duoneb) 3 ml Q4H RESP THERAPY PRN HHN SHORTNESS OF BREATH; Start 06/19/19 at 12:30 Hydralazine HCl (Apresoline) 10 mg Q6H PRN IV ELEVATED BLOOD PRESSURE; Start 06/19/19 at 12:30 Nitroglycerin (Nitroglycerin (Sl Tab) 0.4 Mg) 1 tab Q5M PRN SL ANGINA; Start 06/19/19 at 12:30 Sucralfate (Carafate Susp) 1 gm Q12H PRN PO CONSTIPATION; Start 06/19/19 at 15:00 Diagnostic Test (Pha) (Accu-Chek) 1 ea 02 XX Last administered on 06/23/19at 02:39; Admin Dose 1 EA; Start 06/21/19 at 02:00 Insulin Glargine (Lantus) 16 units DAILY@0800 SC Last administered on 06/26/19 08:47; Admin Dose 16 UNITS; Start 06/21/19 at 08:00 Miscellaneous Information 1 ea NOTE XX ; Start 06/20/19 at 10:30 Glucose (Glutose) 15 gm Q15M PRN PO DECREASED GLUCOSE; Start 06/20/19 at 10:30 Glucose (Glutose) 22.5 gm Q15M PRN PO DECREASED GLUCOSE; Start 06/20/19 at 10:30 Dextrose (D50w Syringe) 25 ml Q15M PRN IV DECREASED GLUCOSE; Start 06/20/19 at 10:30 Dextrose (D50w Syringe) 50 ml Q15M PRN IV DECREASED GLUCOSE; Start 06/20/19 at 1 0:30 Glucagon (Glucagen) 1 mg Q15M PRN IM DECREASED GLUCOSE; Start 06/20/19 at 10:30 Glucose (Glutose) 15 gm Q15M PRN BUCCAL DECREASED GLUCOSE; Start 06/20/19 at 10:30 Insulin Aspart (Novolog Insulin Pen) NOVOLOG *MODERATE* ALGORI... AC MEALS AND BEDTIME SC Last administered on 06/26/19 08:43; Admin Dose 4 UNIT; Start 06/22/19 at 17:25 Thiamine HCl (Vitamin B1) 100 mg DAILY PO Last administered on 06/26/19 08:40; Admin Dose 100 MG; Start 06/23/19 at 16:30 Lactobacillus Acidophilus/ Rhamnosus (Culturelle) 1 cap BID PO Last administered on 06/26/19 08:39; Admin Dose 1 CAP; Start 06/23/19 at 21:00 Metoprolol Succinate (Toprol Xl) 12.5 mg DAILY PO Last administered on 06/26/19 08:39; Admin Dose 12.5 MG; Start 06/23/19 at 16:30 Lisinopril (Zestril) 2.5 mg DAILY PO Last administered on 06/26/19 08:40; Admin Dose 2.5 MG; Start 06/24/19 at 09:00 Buspirone HCl (Buspar) 15 mg BID PO Last administered on 06/26/19 08:39; Admin Dose 15 MG; Start 06/23/19 at 21:00 Insulin Aspart (Novolog Insulin Pen) 4 unit AC MEALS SC Last administered on 06/26/19 08:52; Admin Dose 4 UNIT; Start 06/23/19 at 17:25 Pantoprazole (Protonix Tab) 40 mg BID@06,18 PO Last administered on 06/26/19 05:20; Admin Dose 40 MG; Start 06/24/19 at 18:00 DAIANA HERNANDEZ Jun 26, 2019 11:39
[2019-06-26] MEDS ORDERED: POTASSIUM CHLORIDE 20 MEQ POWDER FOR ORAL SOLN PO ONE (12:00)
[2019-06-26 14:10] VITALS: BP 134/83; PULSE 82; RESP 15
[2019-06-26 14:57] VITALS: BP 134/83; PULSE 82; RESP 15
[2019-06-26 20:00] VITALS: BP 142/74; PULSE 81; RESP 18
[2019-06-27] MEDS: ACCU-CHEK XX SCH (01:47)
[2019-06-27 02:35] VITALS: BP 140/70; PULSE 80; RESP 17
[2019-06-27] MEDS: PANTOPRAZOLE (EC) 40 MG TAB PO SCH ×2 (06:04→17:09)
[2019-06-27 08:00] VITALS: BP 138/80; PULSE 87; RESP 16
[2019-06-27] MEDS: INSULIN GLARGINE [LANTus] (100 UNITS/ML) SYG SC SCH (08:15)
[2019-06-27] MEDS: INSULIN ASPART [NOVOLOG] 3 ML PEN SC SCH ×7 (08:16→20:44)
[2019-06-27] MEDS: LACTOBACILLUS RHAMNOSUS CAP PO SCH ×2 (08:19→20:42)
[2019-06-27] MEDS: LISINOPRIL 5 MG TAB PO SCH (08:19)
[2019-06-27] MEDS: BUSPIRONE 5 MG TAB PO SCH ×2 (08:19→20:42)
[2019-06-27] MEDS: METOPROLOL (XL) 25 MG TAB PO SCH (08:20)
[2019-06-27] MEDS: THIAMINE 100 MG TAB PO SCH (08:20)
--- NOTE | 2019-06-27 11:37 | PN ---
Date/Time of Note Date/Time of Note DATE: 06/27/19 TIME: 11:35 Assessment/Plan VTE Prophylaxis [place] [facility] [place] [facility]: 7 [place]CD applied [place] [facility] No SCD contraindicated: low risk/ambulating Pharmacological prophylaxis: NA/contraindicated Pharm contraindication: liver dx Lines/Catheters IV [facility]ter Type (from [facility] PICC Line Central line still needed: Yes Urinary Cath still in place: Yes Reason Cath still needed: urinary retention Assessment/Plan Hospital Course Hospital Course -- Found in shock. Hb 3.5 & Coagulopathic/ elevated INR. Transfused/ stablized, underwent EGD and found to have no active bleed. now stable for discharge. Refused colonoscopy. would hold off on asa/ eliquis [for recent ~stroke] due to signficant anemia. Encephalopathy improved. A/P 1. Hemorrhagic shock? etio ~ Coagulopathy/ inr elevated. Stable DC to SNF when bed available. 2. Sirs, stable observe 3. Ac toxic metabolic encephalopathy, improved. oriented to yr/ month today. 4. Type 2 diabetes 5. Essential hypertension 6. Metabolic syndrome 7. Recent lt-sided stroke? Follow-up on records from [facility]. no asa/ eliquis for now 8. Ftt, stable discharge to SNF 9. Dysphagia continue altered diet 10. Malnutrition continue altered feeds 11. Coagulopathy due to ukn cause. Etoh liver Dz? Hepatitis? cont outpt work up 12. BPH 13. Adjustment disorder 14. Hep C? work up as outpatient. 15. Anemia/ ABL; outpt colonoscopy. Refused inpatient eval Subjective: No distress. trying to get out of bed. O: vss PE no pallor reg ctab bs+ nt nd no r r g no edema Result Diagram: 06/26/1942506/26/196 Results 24hrs Laboratory Tests Test 06/26/19 12:46 06/26/19 17:16 06/26/19 20:23 06/27/19 01:46 Bedside Glucose 212 100 196 156 Test 06/27/19 08:01 06/27/19 09:28 Bedside Glucose 170 Lab Scanned Report REFERENCE LAB Exam/Review of Systems Exam Vitals Vital Signs Date Temp Pulse Resp B/P (MAP) Pulse Ox O2 O2 Flow FiO2 Time Delivery Rate 06/27/19 98.3 87 16 138/80 95 08:00 (99) 06/26/19 Room Air 20:00 Intake and Output 06/26/19 06/26/19 06/27/19 1515:00 23:00 07:00 IntakeIntake Total 560 ml 600 ml OutputOutput Total 1200 ml 1500 ml BalanceBalance -640 ml -900 ml Results Results 24hrs Laboratory Tests Test 06/26/19 12:46 06/26/19 17:16 06/26/19 20:23 06/27/19 01:46 Bedside Glucose 212 100 196 156 Test 06/27/19 08:01 06/27/19 09:28 Bedside Glucose 170 Lab Scanned Report REFERENCE LAB Medications Medication Current Medications IV Flush (NS 3 ml) 3 ml PER PROTOCOL IV ; Start 06/19/19 at 12:30 Ondansetron HCl (Zofran Inj) 4 mg Q6H PRN IV NAUSEA/VOMITING; Start 06/19/19 at 12:30 Acetaminophen (Tylenol Tab) 650 mg Q6H PRN PO .PAIN 1-3 OR TEMP Last administered on 06/24/19at 16:14; Admin Dose 650 MG; Start 06/19/19 at 12:30 Acetaminophen/ Hydrocodone Bitart ([place] (5/325)) 1 tab Q6H PRN PO .MOD PAIN 4- 6; Start 06/19/19 at 12:30 Morphine Sulfate (morphine) 2 mg Q4H PRN IV .SEVERE PAIN 7-10 Last administered on 06/26/19at 22:09; Admin Dose 2 MG; Start 06/19/19 at 12:30 Docusate Sodium (Colace) 100 mg Q12H PRN PO .CONSTIPATION Last administered on 06/25/19at 05:12; Admin Dose 100 MG; Start 06/19/19 at 12:30 Magnesium Hydroxide (Milk Of Mag) 30 ml DAILY PRN PO .CONSTIPATION; Start 06/19/19 at 12:30 Lorazepam (Ativan) 0.5 mg Q6H PRN IV ANXIETY Last administered on 06/23/19at 15:40; Admin Dose 0.5 MG; Start 06/19/19 at 12:30 Albuterol/ Ipratropium (Duoneb) 3 ml Q4H RESP THERAPY PRN HHN SHORTNESS OF BREATH; Start 06/19/19 at 12:30 Hydralazine HCl (Apresoline) 10 mg Q6H PRN IV ELEVATED BLOOD PRESSURE; Start 06/19/19 at 12:30 Nitroglycerin (Nitroglycerin (Sl Tab) 0.4 Mg) 1 tab Q5M PRN SL ANGINA; Start 06/19/19 at 12:30 Sucralfate (Carafate Susp) 1 gm Q12H PRN PO CONSTIPATION; Start 06/19/19 at 15:00 Diagnostic Test (Pha) (Accu-Chek) 1 ea 02 XX Last administered on 06/27/19at 01:47; Admin Dose 1 EA; Start 06/21/19 at 02:00 Insulin Glargine (Lantus) 16 units DAILY@0800 SC Last administered on 06/27/19at 08:15; Admin Dose 16 UNITS; Start 06/21/19 at 08:00 Miscellaneous Information 1 ea NOTE XX ; Start 06/20/19 at 10:30 Glucose (Glutose) 15 gm Q15M PRN PO DECREASED GLUCOSE; Start 06/20/19 at 10:30 Glucose (Glutose) 22.5 gm Q15M PRN PO DECREASED GLUCOSE; Start 06/20/19 at 10:30 Dextrose (D50w Syringe) 25 ml Q15M PRN IV DECREASED GLUCOSE; Start 06/20/19 at 10:30 Dextrose (D50w Syringe) 50 ml Q15M PRN IV DECREASED GLUCOSE; Start 06/20/19 at 10:30 Glucagon (Glucagen) 1 mg Q15M PRN IM DECREASED GLUCOSE; Start 06/20/19 at 10:30 Glucose (Glutose) 15 gm Q15M PRN BUCCAL DECREASED GLUCOSE; Start 06/20/19 at 10:30 Insulin Aspart (Novolog Insulin Pen) NOVOLOG *MODERATE* ALGORI... AC MEALS AND BEDTIME SC Last administered on 06/27/19at 08:16; Admin Dose 2 UNIT; Start 06/22/19 at 17:25 Thiamine HCl (Vitamin B1) 100 mg DAILY PO Last administered on 06/27/19at 08:20; Admin Dose 100 MG; Start 06/23/19 at 16:30 Lactobacillus Acidophilus/ Rhamnosus (Culturelle) 1 cap BID PO Last administered on 06/27/19at 08:19; Admin Dose 1 CAP; Start 06/23/19 at 21:00 Metoprolol Succinate (Toprol Xl) 12.5 mg DAILY PO Last administered on 06/27/19 08:20; Admin Dose 12.5 MG; Start 06/23/19 at 16:30 Lisinopril (Zestril) 2.5 mg DAILY PO Last administered on 06/27/19 08:19; Admin Dose 2.5 MG; Start 06/24/19 at 09:00 Buspirone HCl (Buspar) 15 mg BID PO Last administered on 06/27/19 08:19; Admin Dose 15 MG; Start 06/23/19 at 21:00 Insulin Aspart (Novolog Insulin Pen) 4 unit AC MEALS SC Last administered on 06/27/19 08:17; Admin Dose 4 UNIT; Start 06/23/19 at 17:25 Pantoprazole (Protonix Tab) 40 mg BID@06,18 PO Last administered on 06/27/19 06:04; Admin Dose 40 MG; Start 06/24/19 at 18:00 ADRI MEHTA MD Jun 27, 2019 11:37
--- NOTE | 2019-06-27 11:39 | DS ---
Date/Time of Note Date/Time of Note DATE: 06/27/19 TIME: 11:37 Discharge Summary Admission/Discharge Info Admit Date/Time Jun 19, 2019 at 09:22 Discharge Date/Time Patient Condition: Fair Consults Consults Dr Cooper Procedures EGD labs Hx of Present Illness 64-year-old gentleman admitted from snf/ board and care w low bp. i believe was recently hospitalized at [facility] with stroke. Hospital Course Hospital Course -- Found in shock. Hb 3.5 & Coagulopathic/ elevated INR. Transfused/ stablized, underwent EGD and found to have no active bleed. now stable for discharge. Refused colonoscopy. would hold off on asa/ eliquis [for recent ~stroke] due to signficant anemia. Encephalopathy improved. Oriented to year. For transfer to snf for continuity. A/P 1. Hemorrhagic shock? etio ~ Coagulopathy/ inr elevated. Stable DC to SNF when bed available. 2. Sirs, stable observe 3. Ac toxic metabolic encephalopathy, improved. oriented to yr/ month today. 4. Type 2 diabetes 5. Essential hypertension 6. Metabolic syndrome 7. Recent lt-sided stroke? Follow-up on records from [facility]. no asa/ eliquis for now 8. Ftt, stable discharge to SNF 9. Dysphagia continue altered diet 10. Malnutrition continue altered feeds 11. Coagulopathy due to ukn cause. Etoh liver Dz? Hepatitis? cont outpt work up 12. BPH 13. Adjustment disorder 14. Hep C? work up as outpatient. 15. Anemia/ ABL; outpt colonoscopy. Refused inpatient eval Home Meds Active Scripts Pantoprazole* (Pantoprazole*) 40 Mg Tablet., 40 MG PO BID@06,18 for 14 Days Prov:ADRI MEHTA MD 06/26/19 Thiamine* (Vitamin B-1*) 100 Mg Tablet, 100 MG PO DAILY for 30 Days, #30 TAB Prov:ADRI MEHTA MD 06/24/19 Lactobacillus Rhamnosus GG (Culturelle) 1 Each Capsule, 1 CAP PO BID for 10 Days, CAP Prov:ADRI MEHTA MD 06/24/19 Acetaminophen* (Tylenol*) 325 Mg Tablet, 650 MG PO Q6H PRN for .PAIN 1-3 OR TEMP for 7 Days, TAB Prov:ADRI MEHTA MD 06/24/19 Lisinopril* (Lisinopril*) 5 Mg Tablet, 2.5 MG PO DAILY for 30 Days, #30 TAB Prov:ADRI MEHTA MD 06/24/19 Metoprolol Succinate* (Toprol XL*) 25 Mg Tab.sr.24h, 12.5 MG PO DAILY for 30 Days, #30 Prov:ADRI MEHTA MD 06/24/19 Sucralfate* (Carafate*) 1 Gm/10 Ml Susp, 1 GM PO DAILY for 30 Days, #30 EA Prov:ADRI MEHTA MD 06/24/19 Reported Medications Buspirone Hcl* (Buspirone Hcl*) 15 Mg Tablet, 15 MG PO BID, TAB 06/19/19 Discontinued Reported Medications Docusate Sodium (Docusil) 100 Mg Capsule, 100 MG PO BID, #60 CAP 06/19/19 Lisinopril* (Lisinopril*) 10 Mg Tablet, 10 MG PO BID, #30 TAB 06/19/19 Rivaroxaban* (Xarelto*) 15 Mg Tablet, 15 MG PO DAILY, TAB 06/19/19 Insulin Lispro (Humalog) 100 Unit/1 Ml Cartridge, SQ, EA 06/19/19 Lorazepam* (Lorazepam*) 1 Mg Tablet, 1 MG PO TID PRN for ANXIETY, #30 TAB 06/19/19 Amlodipine Besylate* (Amlodipine Besylate*) 10 Mg Tablet, 10 MG PO DAILY, #30 TAB 06/19/19 Insulin Glargine,Hum.rec.anlog (Basaglar Kwikpen U-100) 100 Unit/1 Ml Insuln.pen, SC, EA 06/19/19 Labetalol Hcl* (Labetalol Hcl*) 100 Mg Tablet, 100 MG PO TID, TAB 06/19/19 Follow-up Plan appt Primary 1wk. GI Dr Cooper 2wks. Primary Care Provider Care Physician No Primary Time spent on discharge: > 30 minutes Pending Labs Laboratory Tests Test 06/26/19 12:46 06/26/19 17:16 06/26/19 20:23 06/27/19 01:46 Bedside 212 100 196 156 Glucose mg/dL (70-220) mg/dL (70-220) mg/dL (70-220) mg/dL (70-220) Test 06/27/19 08:01 06/27/19 09:28 Bedside 170 Glucose mg/dL (70-220) Lab Scanned REFERENCE Report LAB [id number] ADRI MEHTA MD Jun 27, 2019 11:39
[2019-06-27 14:00] VITALS: BP 110/61; PULSE 86; RESP 20
[2019-06-27 18:30] VITALS: BP 140/79; PULSE 99; RESP 19
[2019-06-27] MEDS ORDERED: LORAZEPAM 2 MG INJ IV ONE (22:00)
[2019-06-27 22:09] VITALS: BP 140/68; PULSE 86; RESP 18
[2019-06-28] MEDS: ACCU-CHEK XX SCH (02:00)
[2019-06-28 02:08] VITALS: BP 133/68; PULSE 81; RESP 18
[2019-06-28] MEDS: PANTOPRAZOLE (EC) 40 MG TAB PO SCH ×2 (06:08→17:19)
[2019-06-28 07:09] VITALS: BP 135/89; PULSE 96; RESP 16
[2019-06-28] MEDS: BUSPIRONE 5 MG TAB PO SCH ×2 (08:36→20:42)
[2019-06-28] MEDS: LACTOBACILLUS RHAMNOSUS CAP PO SCH ×2 (08:36→20:42)
[2019-06-28] MEDS: THIAMINE 100 MG TAB PO SCH (08:37)
[2019-06-28] MEDS: LISINOPRIL 5 MG TAB PO SCH (08:37)
[2019-06-28] MEDS: METOPROLOL (XL) 25 MG TAB PO SCH (08:38)
[2019-06-28] MEDS: INSULIN GLARGINE [LANTus] (100 UNITS/ML) SYG SC SCH (08:41)
[2019-06-28] MEDS: INSULIN ASPART [NOVOLOG] 3 ML PEN SC SCH ×7 (08:42→20:42)
[2019-06-28] MEDS: DOCUSATE SODIUM 100 MG CAP PO PRN (08:45)
[2019-06-28 14:00] VITALS: BP 143/81; PULSE 80; RESP 16
--- NOTE | 2019-06-28 15:45 | DS ---
Date/Time of Note Date/Time of Note DATE: 06/28/19 TIME: 15:43 Discharge Summary Admission/Discharge Info Admit Date/Time Jun 19, 2019 at 09:22 Discharge Date/Time Patient Condition: Stable Consults Dr Cooper Procedures EGD labs Hx of Present Illness 64-year-old gentleman admitted from snf/ board and care w low bp. i believe was recently hospitalized at [facility]? with stroke. Hospital Course Hospital Course -- Found in shock. Hb 3.5 & Coagulopathic/ elevated INR. Transfused/ stablized, underwent EGD and found to have no active bleed. now stable for discharge. Refused colonoscopy. would hold off on asa/ eliquis [for recent ~stroke] due to signficant anemia. Encephalopathy improved. Oriented to year. For transfer to snf for continuity. A/P 1. Hemorrhagic shock? etio ~ Coagulopathy/ inr was elevated. Stable DC to SNF when bed available. 2. Sirs, stable resolved 3. Ac toxic metabolic encephalopathy, improved. oriented to yr/ month. 4. Type 2 diabetes 5. Essential hypertension 6. Metabolic syndrome 7. Recent lt-sided stroke? Follow-up on records from [facility]. no asa/ eliquis for now 8. Ftt, stable discharge to SNF 9. Dysphagia continue altered diet 10. Malnutrition continue altered feeds 11. Coagulopathy due to ukn cause. Etoh liver Dz? Hepatitis? cont outpt work up 12. BPH 13. Adjustment disorder 14. Hep C? work up as outpatient. 15. Anemia/ ABL? outpt colonoscopy. Refused inpatient eval/colonoscopy Home Meds Active Scripts Pantoprazole* (Pantoprazole*) 40 Mg Tablet., 40 MG PO BID@06,18 for 14 Days Prov:ADRI MEHTA MD 06/26/19 Thiamine* (Vitamin B-1*) 100 Mg Tablet, 100 MG PO DAILY for 30 Days, #30 TAB Prov:ADRI MEHTA MD 06/24/19 Lactobacillus Rhamnosus GG (Culturelle) 1 Each Capsule, 1 CAP PO BID for 10 Days, CAP Prov:ADRI MEHTA MD 06/24/19 Acetaminophen* (Tylenol*) 325 Mg Tablet, 650 MG PO Q6H PRN for .PAIN 1-3 OR TEMP for 7 Days, TAB Prov:ADRI MEHTA MD 06/24/19 Lisinopril* (Lisinopril*) 5 Mg Tablet, 2.5 MG PO DAILY for 30 Days, #30 TAB Prov:ADRI MEHTA MD 06/24/19 Metoprolol Succinate* (Toprol XL*) 25 Mg Tab.sr.24h, 12.5 MG PO DAILY for 30 Days, #30 Prov:ADRI MEHTA MD 06/24/19 Sucralfate* (Carafate*) 1 Gm/10 Ml Susp, 1 GM PO DAILY for 30 Days, #30 EA Prov:ADRI METHA MD 06/24/19 Reported Medications Buspirone Hcl* (Buspirone Hcl*) 15 Mg Tablet, 15 MG PO BID, TAB 06/19/19 Discontinued Reported Medications Docusate Sodium (Docusil) 100 Mg Capsule, 100 MG PO BID, #60 CAP 06/19/19 Lisinopril* (Lisinopril*) 10 Mg Tablet, 10 MG PO BID, #30 TAB 06/19/19 Rivaroxaban* (Xarelto*) 15 Mg Tablet, 15 MG PO DAILY, TAB 06/19/19 Insulin Lispro (Humalog) 100 Unit/1 Ml Cartridge, SQ, EA 06/19/19 Lorazepam* (Lorazepam*) 1 Mg Tablet, 1 MG PO TID PRN for ANXIETY, #30 TAB 06/19/19 Amlodipine Besylate* (Amlodipine Besylate*) 10 Mg Tablet, 10 MG PO DAILY, #30 TAB 06/19/19 Insulin Glargine,Hum.rec.anlog (Basaglar Kwikpen U-100) 100 Unit/1 Ml Insuln.pen, SC, EA 06/19/19 Labetalol Hcl* (Labetalol Hcl*) 100 Mg Tablet, 100 MG PO TID, TAB 06/19/19 Follow-up Plan appt Primary 1wk. GI Dr Cooper 2wks. Primary Care Provider Care Physician No Primary Time spent on discharge: < 30 minutes Pending Labs Laboratory Tests Test 06/27/19 17:02 06/27/19 20:42 06/28/19 01:38 06/28/19 08:35 Bedside 206 194 201 203 Glucose mg/dL (70-220) mg/dL (70-220) mg/dL (70-220) mg/dL (70-220) Test 06/28/19 12:36 Bedside 198 Glucose mg/dL (70-220) ADRI MEHTA MD Jun 28, 2019 15:45
[2019-06-28] MEDS: LORAZEPAM 2 MG INJ IV PRN (19:02)
== END 2019-06-28 21:15 | DRG 811 ==
LOC: E/R 06:55 → ICU 09:22 → SUATTDRO 10:07 → TEL 06-21 11:18 → MS3 06-23 22:27
PROVIDERS: ADMIT Internal Medicine; ATTEND Internal Medicine
PROC: 02HV33Z Insertion of Infusion Device into Superior Vena Cava, Percutaneous Approach (ICD-10-PCS; 2019-06-19)
PROC: B548ZZA Ultrasonography of Superior Vena Cava, Guidance (ICD-10-PCS; 2019-06-19)
PROC: 30233N1 Transfusion of Nonautologous Red Blood Cells into Peripheral Vein, Percutaneous Approach (ICD-10-PCS; 2019-06-19)
PROC: 30233K1 Transfusion of Nonautologous Frozen Plasma into Peripheral Vein, Percutaneous Approach (ICD-10-PCS; 2019-06-19)
PROC: 0DJ08ZZ Inspection of Upper Intestinal Tract, Via Natural or Artificial Opening Endoscopic (ICD-10-PCS; principal; 2019-06-20 12:30)
DX: D50.0 Iron deficiency anemia secondary to blood loss (chronic) (principal); G92 Toxic encephalopathy; R57.8 Other shock; D68.9 Coagulation defect, unspecified; E87.2 Acidosis; K92.1 Melena; E46 Unspecified protein-calorie malnutrition; R65.10 Systemic inflammatory response syndrome (SIRS) of non-infectious origin without acute organ dysfunction; I69.354 Hemiplegia and hemiparesis following cerebral infarction affecting left non-dominant side; E11.65 Type 2 diabetes mellitus with hyperglycemia; K20.9 Esophagitis, unspecified; E86.0 Dehydration; I10 Essential (primary) hypertension; R62.7 Adult failure to thrive; Z68.27 Body mass index [BMI] 27.0-27.9, adult; R13.10 Dysphagia, unspecified; N40.0 Benign prostatic hyperplasia without lower urinary tract symptoms; F43.20 Adjustment disorder, unspecified
CPT/HCPCS: 36415; 36430; 36569; 36600; 70450; 71045; 73700; 74176; 76937; 80048; 80053; 80061; 80202; 80307; 81003; 82140; 82607; 82803; 82962; 83036; 83540; 83605; 83735; 84100; 84439; 84443; 84484; 85014; 85018; 85025; 85610; 85730; 86704; 86709; 86803; 86850; 86900; 86901; 86920; 87081; 87086; 87340; 87522; 92526; 92610; 93005; 93306; 96365; 96367; 96375; 97110; 97162; 97530; C9113; J0692; J1815; J2060; J2250; J2270; J2997; J3010; J3370; J3480; J7030; J7040; J7042; P9016; P9059